=== PATIENT | female | born 1985 | race Caucasian/White ===

== ENCOUNTER 2016-06-25 15:29 | Emergency (ER) | payer MEDICAID ==
[2011-12-28 01:35] VITALS: BMI 39.0
[2016-06-25 17:05] LABS: APPEARANCE CLEAR (CLEAR); BILIRUBIN NEGATIVE (NEGATIVE); COLOR YELLOW (YELLOW); GLUCOSE NEGATIVE (NEGATIVE); KETONE NEGATIVE (NEGATIVE); LEUKOCYTE ESTERASE TRACE (NEGATIVE); NITRITE POSITIVE (NEGATIVE); PROTEIN NEGATIVE (NEGATIVE); UROBILINOGEN NORMAL (NORMAL)
[2016-06-25 17:06] LABS: WHITE CELLS - URINE 25-50 /hpf (0-5)
[2016-06-25 17:07] LABS: BACTERIA MANY /hpf (NONE SEEN); MUCUS <1+ /lpf (NONE SEEN)
[2016-06-25 17:13] LABS: BASOPHILS 0.1 % (0.0-2.0); EOSINOPHILS 1.6 % (0-7); HEMATOCRIT 39.1 % (36.0-48.0); HEMOGLOBIN 12.7 g/dL (12-16); IMMATURE GRANULOCYTES 0.2 % (0-5); LYMPHOCYTES 21.5 % (15-50); MCH 27.5 pg (26.0-34.0); MCHC 32.5 g/dL (31.0-37.0); MCV 84.8 fL (80.0-100.0); MEAN PLATELET VOLUME 9.9 fL (7.4-10.4); MONOCYTES 5.3 % (2-11); NEUTROPHILS 71.3 % (40-80); PLATELET COUNT 250 10x3/uL (130-400); RBC 4.61 10x6/uL (4.00-5.40); RDW 14.5 % (11.5-14.5); WBC 14.8 10x3/uL (4.8-10.8)
[2016-06-25 17:24] LABS: ALBUMIN 3.5 g/dL (3.4-5.0); ALKALINE PHOSPHATASE 87 U/L (46-116); ALT (SGPT) 32 U/L (10-68); BILIRUBIN - TOTAL 0.14 mg/dL (0.2-1.3); CALC OSMOLALITY 280 mosm/kg (275-300); CALCIUM 8.9 mg/dL (8.5-10.1); CARBON DIOXIDE 28.4 mmol/L (21.0-32.0); CHLORIDE - SERUM 106 mmol/L (98-107); CREATININE - SERUM 0.8 mg/dL (0.6-1.3); GLUCOSE 87 mg/dL (74-106); POTASSIUM - SERUM 4.2 mmol/L (3.5-5.1); PROTEIN - SERUM 7.4 g/dL (6.4-8.2); SODIUM 141 mmol/L (136-145); UREA NITROGEN 16 mg/dL (7-18); eGFR NON AFRICAN AMERICAN 89 mL/min (90-120)
[2016-06-25 18:23] LABS: HCG SERUM NEGATIVE (NEGATIVE)
== END 2016-06-25 19:10 | disposition home or self-care (01) ==
LOC: D.ER 15:29
PROVIDERS: Emergency Medicine
DX: N39.0 Urinary tract infection, site not specified (principal)

== ENCOUNTER 2016-08-31 11:56 | Emergency (ER) | payer MEDICAID ==
[2011-12-28 01:35] VITALS: BMI 39.0
== END 2016-08-31 14:29 | disposition home or self-care (01) ==
LOC: D.ER 11:56
DX: S70.02XA Contusion of left hip, initial encounter (principal); W01.0XXA Fall on same level from slipping, tripping and stumbling without subsequent striking against object, initial encounter; Y93.89 Activity, other specified; Y92.019 Unspecified place in single-family (private) house as the place of occurrence of the external cause; F17.200 Nicotine dependence, unspecified, uncomplicated

== ENCOUNTER 2017-03-23 12:24 | Emergency (ER) | payer MEDICAID ==
[2011-12-28 01:35] VITALS: BMI 39.0
== END 2017-03-23 16:26 | disposition home or self-care (01) ==
LOC: D.ER 12:24
DX: S16.1XXA Strain of muscle, fascia and tendon at neck level, initial encounter (principal); V43.52XA Car driver injured in collision with other type car in traffic accident, initial encounter; Y93.89 Activity, other specified; Y92.410 Unspecified street and highway as the place of occurrence of the external cause; F17.200 Nicotine dependence, unspecified, uncomplicated

== ENCOUNTER 2017-08-01 09:56 | Emergency (ER) | payer MEDICAID ==
[2011-12-28 01:35] VITALS: BMI 39.0
== END 2017-08-01 11:33 | disposition home or self-care (01) ==
LOC: D.ER 09:56
DX: M54.16 Radiculopathy, lumbar region (principal); F17.200 Nicotine dependence, unspecified, uncomplicated

== ENCOUNTER 2017-11-23 19:12 | Emergency (ER) | payer MEDICAID ==
[~2017-11-23] VITALS: Ht 162.6 cm; Wt 106.8 kg
[2017-11-23 19:17] VITALS: Ht 162.6 cm; Wt 106.8 kg
[2017-11-23 20:03] LABS: HCG URINE NEGATIVE (NEGATIVE)
[2017-11-23] MEDS ORDERED: ROBAXIN-750750 MG PO (23:18)
[2017-11-24 01:17] VITALS: BP 140/70
== END 2017-11-24 01:17 | disposition home or self-care (01) ==
LOC: D.ER 19:12
PROVIDERS: Emergency Medicine
DX: S16.1XXA Strain of muscle, fascia and tendon at neck level, initial encounter (principal); X58.XXXA Exposure to other specified factors, initial encounter; Y93.89 Activity, other specified; Y92.89 Other specified places as the place of occurrence of the external cause; S39.012A Strain of muscle, fascia and tendon of lower back, initial encounter; R51 Headache; M54.2 Cervicalgia; F17.200 Nicotine dependence, unspecified, uncomplicated

== ENCOUNTER 2018-07-09 22:11 | Emergency (ER) | payer MEDICAID ==
[~2018-07-09] VITALS: Ht 162.6 cm; Wt 106.6 kg
[~2018-07-09 22:11] MED LIST: ROBAXIN-750750 MG PO
[2018-07-09 22:19] VITALS: Ht 162.6 cm; Wt 106.6 kg
[2018-07-09] MEDS ORDERED: TORADOL10 MG PO (23:49)
[2018-07-09] MEDS ORDERED: VALTREX1000 MG PO (23:49)
[2018-07-09] MEDS ORDERED: CLEOCIN HCL300 MG PO (23:49)
[2018-07-10 00:44] VITALS: BP 113/62
== END 2018-07-10 00:45 | disposition home or self-care (01) ==
LOC: D.ER 22:11
PROVIDERS: Family Medicine
DX: N61.1 Abscess of the breast and nipple (principal)

== ENCOUNTER 2018-09-21 00:02 | Emergency (ER) | payer MEDICAID ==
[~2018-09-21] VITALS: Ht 162.6 cm; Wt 106.8 kg
[~2018-09-21 00:02] MED LIST changes: +CLEOCIN HCL300 MG PO; +TORADOL10 MG PO; +VALTREX1000 MG PO
[2018-09-21 00:10] VITALS: Ht 162.6 cm; Wt 106.8 kg
[2018-09-21 00:36] LABS: HCG URINE NEGATIVE (NEGATIVE)
[2018-09-21 00:39] LABS: APPEARANCE HAZY (CLEAR); BACTERIA MANY /hpf (NONE SEEN); BILIRUBIN NEGATIVE (NEGATIVE); COLOR YELLOW (YELLOW); GLUCOSE NEGATIVE (NEGATIVE); KETONE NEGATIVE (NEGATIVE); MUCUS >1+ /lpf (NONE SEEN); NITRITE POSITIVE (NEGATIVE); PROTEIN NEGATIVE (NEGATIVE); RED CELLS - URINE 25-50 /hpf (0-5); UROBILINOGEN NORMAL (NORMAL)
[2018-09-21 00:51] LABS: BASOPHILS 0.3 % (0-2); EOSINOPHILS 1.8 % (0-7); HEMATOCRIT 37.9 % (36.0-48.0); HEMOGLOBIN 12.7 g/dL (12-16); IMMATURE GRANULOCYTES 0.2 % (0-5); MCH 28.5 pg (26.0-34.0); MCHC 33.5 g/dL (31.0-37.0); MCV 85.2 fL (80.0-100.0); MEAN PLATELET VOLUME 9.1 fL (7.4-10.4); MONOCYTES 7.1 % (2-11); NEUTROPHILS 65.6 % (40-80); PLATELET COUNT 260 10x3/uL (130-400); RBC 4.45 10x6/uL (4.00-5.40); RDW 14.1 % (11.5-14.5); WBC 11.4 10x3/uL (4.8-10.8)
[2018-09-21 01:15] LABS: ALBUMIN 3.3 g/dL (3.4-5.0); ALKALINE PHOSPHATASE 84 U/L (46-116); ALT (SGPT) 23 U/L (10-68); AMYLASE - SERUM 47 U/L (25-115); BILIRUBIN - TOTAL 0.21 mg/dL (0.2-1.3); CALC OSMOLALITY 285 mosm/kg (275-300); CALCIUM 8.5 mg/dL (8.5-10.1); CARBON DIOXIDE 27.2 mmol/L (21.0-32.0); CHLORIDE - SERUM 106 mmol/L (98-107); CREATININE - SERUM 0.8 mg/dL (0.6-1.3); GLUCOSE 90 mg/dL (74-106); LIPASE 93 U/L (73-393); PROTEIN - SERUM 7.2 g/dL (6.4-8.2); SODIUM 143 mmol/L (136-145); UREA NITROGEN 15 mg/dL (7-18); eGFR NON AFRICAN AMERICAN 88 mL/min (90-120)
[2018-09-21] MEDS ORDERED: OMNICEF300 MG PO (01:35)
[2018-09-21 01:44] VITALS: BP 127/76
== END 2018-09-21 01:43 | disposition home or self-care (01) ==
LOC: D.ER 00:02
PROVIDERS: Family Medicine
DX: N39.0 Urinary tract infection, site not specified (principal); J01.90 Acute sinusitis, unspecified; R31.9 Hematuria, unspecified

== ENCOUNTER 2018-12-22 05:03 | Inpatient (IN) | payer MEDICAID ==
[2018-12-22] VITALS (7 sets, daily range): BP systolic 108–137; BP diastolic 55–90; Ht 162.6 cm; Wt 112.7 kg
[~2018-12-22] VITALS: Ht 162.6 cm; Wt 112.7 kg
--- NOTE | ~2018-12-22 | HEMODYNAMI ---
PATIENT:CHICO FORD MEDICAL RECORD: [id number] : 87 LOCATION:[facility] D.2102 ADMISSION DATE: 12/22/18 Generatedon:12/22/201817:05 Patient name: CHICO FORD Patient #: [id number] SSN: DO B: 1985 Date of study: 12/22/2018 Page: Of Hemodynamic Procedure Report Patient Data Patient Demographics Procedure consent was obtained First Name: CHICO Gender: Female Last Name: LILIANA : 1985 Middle Initial: R Age: 33 year(s) Patient #: [id number] Race: Unknown Additional ID: [id number] Contact details Address: [address] [place] [address] State: [place] City: [place] Zip code: [address] Admission Admission Data Admission Date: 12/22/2018 Admission Time: 7:44 Room #: D.2102 Procedure Procedure Types Cath Procedure Peripheral Cath Diagnostic Procedure Nephro Nephrostomy Tubes Procedure Description Procedure Date Procedure Date: 12/22/2018 Procedure Start Time: 16:10 Procedure Staff Name Function Ed Hagan MD Performing Physician Taz Shine RT Monitor Dulce Christianson RT Scrub Louise Arreguin RN Nurse Procedure Data Cath Procedure Fluoroscopy Diagnostic fluoroscopy Total fluoroscopy Time: time: 10.5 min 10.5 min Diagnostic fluoroscopy Total fluoroscopy dose: 477 dose: 477 mGy mGy Contrast Material Contrast Material Type Amount (ml) Isovue 300 25 Procedure Medications Medication Administration Route Dosage unlisted medication I.V. 1 g Benadryl I.V. 25 mg Heparin Flush Bag added to field 1 bags (1000units/500ml NS) Lidocaine 1% added to field 20 Versed I.V. 1 mg Fentanyl I.V. 50 mcg Versed I.V. 1 mg Fentanyl I.V. 50 mcg Versed I.V. 1 mg Fentanyl I.V. 50 mcg Fentanyl I.V. 25 mcg Versed I.V. 0.5 mg Versed I.V. 0.5 mg Fentanyl I.V. 25 mcg Benadryl I.V. 25 mg Fentanyl I.V. 50 mcg Versed I.V. 1 mg Fentanyl I.V. 50 mcg Versed I.V. 1 mg Hemodynamics Rest Heart Rate: 76 (bpm) Snapshots Pre Cath Intra NCS Post Cath Vital Signs Time Heart Resp SPO2 etCO2 NIBP (mmHg) Rhythm Pain Sedation Rate (ipm) (%) (mmHg) Status Level (bpm) 15:53:53 89 26 94 30.7 132/77(110) NSR 0 (11) 10(A) , No pain 15:58:05 87 24 92 30.7 130/80(104) NSR 0 (11) 10(A) , No pain 16:02:13 91 21 92 30.7 134/85(108) NSR 0 (11) 8(A) , No pain 16:06:25 90 25 91 29.9 135/81(117) NSR 0 (11) 8(A) , No pain 16:10:37 85 24 92 29.9 132/79(107) NSR 0 (11) 8(A) , No pain 16:14:49 74 23 92 27.7 132/83(112) NSR 0 (11) 8(A) , No pain 16:19:03 95 23 92 30.7 128/77(95) NSR 0 (11) 8(A) , No pain 16:23:13 96 18 91 29.9 127/76(94) NSR 0 (11) 8(A) , No pain 16:27:20 107 23 93 31.4 116/73(86) NSR 0 (11) 8(A) , No pain 16:31:26 107 21 92 29.2 119/78(93) NSR 0 (11) 8(A) , No pain 16:35:32 95 23 97 29.9 137/83(108) NSR 0 (11) 8(A) , No pain 16:39:44 93 24 99 32.9 135/88(112) NSR 0 (11) 8(A) , No pain 16:43:52 93 24 100 32.2 139/87(116) NSR 0 (11) 8(A) , No pain 16:48:02 103 24 100 31.4 134/90(116) NSR 0 (11) 8(A) , No pain 16:52:13 99 24 100 31.4 140/83(113) NSR 0 (11) 8(A) , No pain 16:56:23 93 26 100 32.2 140/87(113) NSR 0 (11) 8(A) , No pain 17:00:33 96 26 100 31.4 141/92(109) NSR 0 (11) 8(A) , No pain Medications Time Medication Route Dose Verified Delivered Reason Notes Effec tiveness by by 15:51:21 maxipme I.V. 1g Ed Louise Per Rodríguez Hagan RN physician 15:51:37 Benadryl I.V. 25 mg Ed Louise for Rodríguez Hagan RN sedation 15:59:11 Heparin Flush added 1 Ed Ward used for Bag to bags Danya Hagan MD procedure (1000units/500ml field KHOURY NS) 15:59:28 Lidocaine 1% added 20ml Ed Ward used for to vial Danya Hagan MD procedure field KHOURY 16:18:36 Versed I.V. 1 mg Ed Louise used for Rodríguez Hagan community pharmacist 16:18:51 Fentanyl I.V. 50 Ed Louise used for mcg Rodríguez Hagan community pharmacist 16:23:04 Versed I.V. 1 mg Ed Louise used for Rodríguez Hagan community pharmacist 16:23:14 Fentanyl I.V. 50 Ed Louise used for mcg Rodríguez Hagan community pharmacist 16:26:01 Versed I.V. 1 mg Ed Louise used for Rodríguez Hagan community pharmacist 16:26:36 Fentanyl I.V. 50 Ed Louise used for mcg Rodríguez Hagan community pharmacist 16:35:54 Fentanyl I.V. 25 Ed Louise used for mcg Rodríguez Hagan community pharmacist 16:36:02 Versed I.V. 0.5 Ed Louise used for mg Rodríguez Hagan community pharmacist 16:39:42 Versed I.V. 0.5 Ed Louise used for mg Rodríguez Hagan community pharmacist 16:39:57 Fentanyl I.V. 25 Ed Louise used for mcg Rodríguez Hagan community pharmacist 16:40:56 Benadryl I.V. 25 mg Ed Louise for Rodríguez Hagan RN sedation 16:43:44 Fentanyl I.V. 50 Ed Louise used for mcg Rodríguez Hagan RN procedure 16:43:53 Versed I.V. 1 mg Ed Louise used for Rodríguez Hagan RN procedure 16:59:20 Fentanyl I.V. 50 Ed Louise used for mcg Rodríguez Hagan RN procedure 16:59:29 Versed I.V. 1 mg Ed Louise used for Rodríguez Hagan RN, MD Procedure Log Time Note 15:31:44 Taz Rl RT (R) (CV) sent for patient. Start room use. 15:31:53 Time tracking: Regular hours (M-F 7:00 - 5:00) 15:31:59 Plan of Care:Hemodynamics will remain stable., Cardiac rhythm will remain stable., Comfort level will be maintained., Respiratory function will remain adequate., Patient/ family verbilizes understanding of procedure., Procedure tolerated without complication., Recovers from procedure without complications.. 15:32:09 Patient received from panOpen to IR Alert and oriented. Tansferred to table in Prone position. 15:32:14 Signed procedure consent form obtained from patient. 15:32:20 Correct patient and procedure confirmed by team. 15:32:21 ECG and BP/O2 sat monitors applied to patient. 15:32:24 Full Disclosure recording started 15:32:26 - 15:32:32 H&P Date Dictated: 12/22/2018 Within 30 days and on chart.. 15:32:33 Pre-procedure instructions explained to patient. 15:32:33 Pre-procedure instructions explained to patient. 15:32:35 Family in waiting room. 15:32:38 Patient NPO since Midnight. 15:32:46 Is the patient allergic to Iodine/contrast media? No. 15:32:47 Is patient on blood thinner?No 15:32:55 Patient diabetic? No. 15:32:57 - 15:33:22 HCG/Urine : not drawn 15:33:32 ----Pre-sedation anethsthesia assessment.---- 15:33:39 Previous problem with sedation/anesthesia? No ? 15:33:43 Snore? No 15:33:45 Sleep apnea? No 15:33:50 Deviated septum? No 15:33:54 Opens mouth fully? Yes 15:33:55 Sticks out tongue? Yes 15:33:57 Airway obstruction? No ? 15:33:59 Dentures? No ? 15:34:00 - 15:34:14 Use device set IR Diagnostic 15:34:16 Bag Decanter () opened to sterile field. 15:34:16 Sterile Angiographic Pack opened to sterile field. 15:36:32 HCG/Urine : completed and on chart 15:51:21 maxipme 1g I.V. was administered by Louise Arreguin RN; Per physician; 15:51:37 Benadryl 25 mg I.V. was administered by Louise Arreguin RN; for sedation; 15:52:19 Patient pain scale 0/10 no pain. 15:52:36 Left Lumbar was prepped with chlora-prep and draped in sterile fashion. 15:52:38 Alarms reviewed by RVita NVita 15:52:39 Sharps counted by scrub and verified by RVitaN. 15:52:46 Vital chart was started 15:52:47 Baseline sample Acquired. 15:59:11 Heparin Flush Bag (1000units/500ml NS) 1 bags added to field was administered by Ed Hagan MD; used for procedure; 15:59:28 Lidocaine 1% 20ml vial added to field was administered by Ed Hagan MD; used for procedure; 16:09:12 Physician arrived 16::13 --------ALL STOP TIME OUT------ 16:09:14 Final Timeout: patient, procedure, and site verified with staff and physician. All members of the team are in agreement. 16:09:20 Lumbar site verified by team. 16::26 Fire Safety Assessment: A--An alcohol-based skin anteseptic being used preoperatively., C--Open oxygen or nitrous oxide is being used. 16:10:24 Sedation plan: IV Moderate Sedation Medication:Versed, Fentanyl 16:10:34 Procedure started. 16:10:39 Local anesthetic to Lumbar area with Lidocaine 1% by Ed Hagan MD.INITIAL ACCESS ONLY 16:16:16 Tegaderm 4 x 4 (1626W) opened to sterile field. 16:16:17 BAG, DRAINAGE EMPTY 600ML W/MARIA E ([id number]) opened to sterile field. 16:16:17 STOPCOCK 3-Way Large Bore ([id number]) opened to sterile field. 16:16:17 IV Extension Set opened to sterile field. 16:16:18 KIT, INTRODUCER ACCUSTICK II W/C ([id number]) opened to sterile field. 16:16:18 CHIBA 22 X 15 needle opened to sterile field. 16:17:23 Abscession 8Fr drainage catheter ([id number]) opened to sterile field. 16:18:36 Versed 1 mg I.V. was administered by Louise Arreguin RN; used for procedure; 16:18:51 Fentanyl 50 mcg I.V. was administered by Louise Arreguin RN; used for procedure; 16:23:04 Versed 1 mg I.V. was administered by Louise Arreguin RN; used for procedure; 16:23:14 Fentanyl 50 mcg I.V. was administered by Louise Arreguin RN; used for procedure; 16:26:01 Versed 1 mg I.V. was administered by Louise Arreguin RN; used for procedure; 16:26:36 Fentanyl 50 mcg I.V. was administered by Louise Arreguin RN; used for procedure; 16:35:08 NITINOL .018 80cm wire ([id number]) opened to sterile field. 16:35:54 Fentanyl 25 mcg I.V. was administered by Louise Arreguin RN; used for procedure; 16:36:02 Versed 0.5 mg I.V. was administered by Louise Arreguin RN; used for procedure; 16:39:42 Versed 0.5 mg I.V. was administered by Louise Arreguin RN; used for procedure; 16:39:57 Fentanyl 25 mcg I.V. was administered by Louise Arreguin RN; used for procedure; 16:40:56 Benadryl 25 mg I.V. was administered by Louise Arreguin RN; for sedation; 16:43:44 Fentanyl 50 mcg I.V. was administered by Louise Arreguin RN; used for procedure; 16:43:53 Versed 1 mg I.V. was administered by Louise Arreguin RN; used for procedure; 16:47:28 GLIDE WIRE ANGLE 180cm ([id number]) opened to sterile field. 16:54:56 KIT, INTRODUCER ACCUSTICK II W/C ([id number]) opened to sterile field. 16:58:11 Procedure ended.(Physican Out) 16:59:20 Fentanyl 50 mcg I.V. was administered by Louise Arreguin RN; used for procedure; 16:59:29 Versed 1 mg I.V. was administered by Louise Arreguin RN; used for procedure; 16:59:44 Fluoroscopy time 10.50 minutes. 16:59:57 Fluoroscopy dose: 477 mGy 16:59:57 Flurop Dose total: 477 17:00:02 Contrast amount:Isovue 300 25ml. 17:00:07 Insertion/operative site no bleeding no hematoma. 17:00:12 Post-op/insertion site Left Lumbar area dressed using a 4 x 4 and Tegaderm. 17:00:19 Post Lumbar area:stable 17:00:23 Post procedure instruction explained to patient.Patient verbalizes understanding. 17:00:24 Procedure and supply charges have been captured, reviewed, submitted an d are correct. 17:03:39 Report given to [facility]. 17:03:59 Patient transfered to [facility] with Bed. 17:05:27 Vital chart was stopped Device Usage Item Name Manufacture Quantity Catalog Hospital Part Current Minima l Lot# / Number Charge Number Stock Stock Serial# Code Bag Decanter Microtek 1 2001S [id number] 88484 [id number] 5 (2001S) Medical Inc. Sterile Cardinal 1 [id number] 161861 954461 5 Angiographic Health Pack Tegaderm 4 x 3M 1 1626W 135662 640580 910970 5 4 (1626W) BAG, [facility] 1 [id number] 025474 713229 121335 5 DRAINAGE EMPTY 600ML W/MARIA E (ERI874) STOPCOCK [facility] 1 [id number] 068346 7586 747747 5 [id number] 3-Way Large Bore ([id number]) IV Extension Hospira 1 32621-99 756285 63757 796331 5 [id number] Set KIT, Kathleen 2 [id number] 082638 071930 013804 5 [id number] INTRODUCER Scientific [id number] ACCUSTICK II W/C ([id number]) CHIBA 22 X [facility] 1 D30006 659918 868748 5 [id number] 15 needle Abscession Angiodynamics 1 [id number] 478248 205869 423846 5 8Fr drainage catheter ([id number]) NITINOL .018 Medtronic 1 [id number] 120432 989101 5 [id number] 80cm wire ([id number]) GLIDE WIRE Terumo 1 [id number] 115092 304102 812845 5 ANGLE 180cm ([id number]) Signature Audit [place] Stage Time Signature Unsigned Intra-Procedure 12/22/2018 Taz 5:05:23 PM [place] RT (R) (CV) Signatures Monitor : Taz Signature : [place] RT Date : Time : [facility] [address] [place] [address]
[~2018-12-22 05:03] MED LIST changes: +OMNICEF300 MG PO
--- NOTE | 2018-12-22 05:19 | NUR ---
URINE COLLECTED AND SENT TO LAB. BLANKET PROVIDED FOR PT COMFORT.
[2018-12-22 05:44] LABS: HCG URINE NEGATIVE (NEGATIVE)
[2018-12-22 05:45] LABS: APPEARANCE HAZY (CLEAR); BILIRUBIN NEGATIVE (NEGATIVE); COLOR YELLOW (YELLOW); GLUCOSE NEGATIVE (NEGATIVE); KETONE NEGATIVE (NEGATIVE); NITRITE POSITIVE (NEGATIVE); PROTEIN NEGATIVE (NEGATIVE); SPECIFIC GRAVITY 1.015 (1.005-1.020); UROBILINOGEN NORMAL (NORMAL)
[2018-12-22 05:46] LABS: BACTERIA MANY /hpf (NONE SEEN); CALCIUM OXALATE CRYSTALS 0-5 /hpf (NONE SEEN); EPITHELIAL CELLS 0-5 /hpf (0-5); RED CELLS - URINE 0-5 /hpf (0-5)
[2018-12-22 05:49] LABS: UDS - AMPHET NEGATIVE QUAL (NEGATIVE); UDS - BARB NEGATIVE QUAL (NEGATIVE); UDS - BENZO POSITIVE QUAL (NEGATIVE); UDS - COCAINE NEGATIVE QUAL (NEGATIVE); UDS - OPIATE POSITIVE QUAL (NEGATIVE); UDS - PCP NEGATIVE QUAL (NEGATIVE); UDS - THC NEGATIVE QUAL (NEGATIVE)
[2018-12-22] MEDS ORDERED: OMNICEF300 MG PO (05:51)
[2018-12-22 06:13] LABS: ALBUMIN 3.5 g/dL (3.4-5.0); ANION GAP 15.5 mmol/L (8-16); BILIRUBIN - TOTAL 0.35 mg/dL (0.2-1.3); CALCIUM 8.7 mg/dL (8.5-10.1); CARBON DIOXIDE 23.9 mmol/L (21.0-32.0); CREATININE - SERUM 1.2 mg/dL (0.6-1.3); POTASSIUM - SERUM 3.4 mmol/L (3.5-5.1); PROTEIN - SERUM 7.5 g/dL (6.4-8.2)
[2018-12-22 06:35] LABS: HEMATOCRIT 38.5 % (36.0-48.0); HEMOGLOBIN 13.2 g/dL (12-16); MCH 28.6 pg (26.0-34.0); MCHC 34.3 g/dL (31.0-37.0); MCV 83.5 fL (80.0-100.0); MEAN PLATELET VOLUME 9.7 fL (7.4-10.4); PLATELET COUNT 269 10x3/uL (130-400); RBC 4.61 10x6/uL (4.00-5.40); RDW 14.3 % (11.5-14.5); WBC 20.6 10x3/uL (4.8-10.8)
--- NOTE | 2018-12-22 07:01 | NUR ---
HANDOFF REPORT GIVEN TO LAI CABAN PER SBAR AT BEDSIDE.
--- NOTE | 2018-12-22 07:05 | NUR ---
ASSUMED CARE OT PT. CURLED UP IN BED, MOANING AND CRYING. REPORTS PAIN 02/15. SPOKE WITH DR KNIGHT AND NEW ORDERS RCVD AND ADMIN. PT A/OX3. SPEECH CLWEAR
--- NOTE | 2018-12-22 07:17 | NUR ---
RESTING IN BED WITH EYES CLOSED. AROUSES EAISLY AND REPORTS PAIN "STILL HURTS BUT MUCH BETTER"
--- NOTE | 2018-12-22 07:45 | NUR ---
RESTING IN BED WITH SNORING RESP. VSS.
--- NOTE | 2018-12-22 07:56 | NUR ---
REPORT CALLED TO LAI CHENG BY SBAR FORMAT
--- NOTE | 2018-12-22 07:58 | NUR ---
TRANSPORTED TO ROOM #2102, CONDITION STABLE
--- NOTE | 2018-12-22 08:15 | NUR ---
RECEIVED TO ROOM 2101 AND MADE COMFORTABLE. ORIENTED TO ROOM. NO REQUESTS AT THIS TIME. IV PATENT TO RIGHT AC AND INFUSING WELL AT 125 CC/HR. BED IN LOW LOCKED POSITION AND CALL LIGHT IN REACH. WILL CONTINUE POC.
[2018-12-22 09:43] LABS: APTT 29.6 SECONDS (22.8-39.4); PROTIME 12.7 SECONDS (11.6-15.0)
[2018-12-22 10:15] LABS: EOSINOPHILS 1 % (0-7); LYMPHOCYTES 7 % (15-50); MONOCYTES 8 % (2-11); NEUTROPHILS 78 % (40-80); PLATELET ESTIMATE NORMAL; ROULEAUX OCC
--- NOTE | 2018-12-22 10:53 | NUR ---
SURGERY CONSENT FOR PLACEMENT OF NEPHROSTOMY TUBE SIGNED BY PT. NO QUESTIONS AT PRESENT TIME.
--- NOTE | 2018-12-22 15:05 | NUR ---
REQUESTED HER IV SITE BE MOVED FROM AC. LEFT AC LINE IN BUT STARTED IV IN RIGHT HAND WITH 20 GAUGE X 1 ATTEMPT. IV FLUID INFUSING WELL.
--- NOTE | 2018-12-22 15:30 | NUR ---
TO IR VIA BED FOR PROCEDURE
--- NOTE | 2018-12-22 19:30 | NUR ---
PT CARE ASSUMED. VOICED C/O OF BACK PAIN 12/16. TRIED REPOSTIONING. DRESSING ON LEFT LOWER BACK C/D/. FAMILY PRESENT AT BEDSIDE. WILL CPOC.
--- NOTE | 2018-12-22 22:24 | NUR ---
D/C IV TO RIGHT HAND. CATHETER TIP INTACT.
[2018-12-23] VITALS: BP 120/74
[2018-12-23 03:42] LABS: BASOPHILS 0.1 % (0-2); EOSINOPHILS 0 % (0-7); HEMATOCRIT 33.4 % (36.0-48.0); HEMOGLOBIN 11.2 g/dL (12-16); IMMATURE GRANULOCYTES 0.3 % (0-5); LYMPHOCYTES 7.4 % (15-50); MCH 27.9 pg (26.0-34.0); MCHC 33.5 g/dL (31.0-37.0); MCV 83.3 fL (80.0-100.0); MEAN PLATELET VOLUME 9.7 fL (7.4-10.4); NEUTROPHILS 87.2 % (40-80); RBC 4.01 10x6/uL (4.00-5.40); RDW 14.7 % (11.5-14.5); WBC 18.5 10x3/uL (4.8-10.8)
[2018-12-23 03:50] LABS: ANION GAP 14.4 mmol/L (8-16); CALCIUM 7.9 mg/dL (8.5-10.1); CARBON DIOXIDE 22.2 mmol/L (21.0-32.0); CREATININE - SERUM 1.3 mg/dL (0.6-1.3); POTASSIUM - SERUM 3.6 mmol/L (3.5-5.1)
[2018-12-23 03:57] LABS: PLATELET COUNT 178 10x3/uL (130-400)
[2018-12-23 04:00] VITALS: BP 116/70
--- NOTE | 2018-12-23 07:00 | NUR ---
RECEIVED REPORT. ASSUMED CARE OF PATIENT. RESTING IN BED WITH EYES OPEN, VISITING WITH A HOSPITAL EMPLOYEE AT BEDSIDE. NO DISTRESS.
--- NOTE | 2018-12-23 07:37 | NUR ---
MEDICATED FOR PAIN AT THIS TIME. COMPLAIN OF BACK PAIN. DRESSING TO LEFT POSTERIOR LOWER BACK INTACT. NO DISTRESS. CALL LIGHT WITHIN REACH.
[2018-12-23 09:58] VITALS: BP 133/72
--- NOTE | 2018-12-23 10:56 | NUR ---
MEDICATED FOR PAIN AT THIS TIME. PATIENT WANTING TO KNOW IF SHE CAN STILL HAVE MORPHINE IN 45 MINS AFTER TAKING THIS MEDCIATION. THIS UNIFIED COMMUNICATIONS ENGINEER INFORMED HER WE NEED TO WAIT ONE HOUR. CALL LIGHT WITHIN REACH.
--- NOTE | 2018-12-23 11:31 | NUR ---
CALLED AND SPOKE WITH SOLO MUNOZ KATLIN HAS STEPPED OUT FOR A MOMENT. EXPLAINED PAIN SITUATION TO TAMMY AND SHE WILL PASS IT ON TO KATLIN. NO NEW ORDERS RECEIVED AT THIS TIME.
--- NOTE | 2018-12-23 12:28 | NUR ---
MEDICATED FOR CONTINUOUS PAIN THAT NORCO HAS NOT RELEIVED AT THIS TIME. NO DISTRESS.
--- NOTE | 2018-12-23 14:47 | NUR ---
PATIENT CALLED KITCHEN AND COUNTER WORKER TO COMPLAIN THAT NOBODY HAS ANSWERED HER CALL LIGHT FOR TWO HOURS AND THAT SHE HAS LAID THERE IN PAIN. THE KITCHEN AND COUNTER WORKER CALLED THIS [employer] CHIEF CLERK AND I INFORMED KITCHEN AND COUNTER WORKER OF EACH TIME THIS PR[employer]OP CHIEF CLERK HAS ADMINISTERED PAIN MEDICATION AND HAVE DOCUMENTED IN MY NOTES. ASKED MIKIE ROBERTSON IF PATIENT HAS HAD ANY COMPLAINTS AND SHE STATED NO, THAT PATIENT HAS BEEN ASLEEP MOST EVERY TIME THAT SHE HAS BEEN IN THE PATIENTS ROOM. THIS NURSE HAS ADMINISTERED PAIN MEDICATION EACH TIME IT HAS BEEN REQUESTED AND AVAILABLE TO THE PATIENT. PATIENTS CHILDREN AT BEDSIDE AT THIS TIME VISITING PATIENT.
[2018-12-23 14:51] VITALS: BP 129/76
--- NOTE | 2018-12-23 15:16 | NUR ---
PROVIDED PATIENT WITH BATHING ACCESSORIES, NEW GOWN, TOWELS, AND WASHCLOTHES. TAPED IV TO RIGHT HAND AND RIGHT AC TO PREVENT DISLOGMENT. PATIENT INSISTED HER DAUGHTER WOULD HELP HER IN THE SHOWER WITH THIS COMPLAINT CLERK OFFERED TO HAVE ONE OF THE DESIGN TECH'S ON THE UNIT ASSIST HER.
--- NOTE | 2018-12-23 16:04 | NUR ---
MEDICATED FOR PAIN AT THIS TIME WITH DILAUDID. PATIENT SITTING IN BED, CONVERSING ON PHONE. NO GRIMACING, GAURDING, MOANING, OR LABORED BREATHING TO INDICATE PAIN OF 8/10. IV FLUIDS INFUSING ORDERED. NO DISTRESS.
--- NOTE | 2018-12-23 16:07 | NUR ---
PATIENT SENDS HER KIDS OUT TO THE DESK TO VERIFY WHAT MEDICATION WAS ADMINISTERED VIA IV AGAIN AFTER THIS DOT ETCHER INFORMED HER THAT 1MG OF DILAUDID WAS ADMINISTERED.
--- NOTE | 2018-12-23 16:30 | NUR ---
CHECKED ON PATIENT. PATIENT LYING ON HER LEFT LATERAL SIDE. WHEN ASKED HOW THE DILAUDID WAS HELPING HER PAIN, PATEINT GAVE "TWO THUMBS UP". PATIENTS CHILDREN REMAIN AT BEDSIDE. NO DISTRESS.
[2018-12-23 17:15] VITALS: BP 155/86
--- NOTE | 2018-12-23 18:34 | NUR ---
MEDICATED FOR PAIN AT THIS TIME. SITTING IN BED. TEMP CHECKED, ORAL 99.3. IV FLUIDS INFUSING ORDERED. NO DISTRESS.
--- NOTE | 2018-12-23 18:36 | NUR ---
PATIENT GIVEN PAIN MEDICATION AND THEN STARTS GIGGLING WITH HER DAUGHTER AT BEDSIDE. PAIN IS SUBJECTIVE, HOWEVER PATIENT IS NOT DISPLAYING TYPICAL GAURDING, GRIMACING, OR MOANING EXPECTED WHEN SOMEONE RATES THEIR PAIN 8/10. CHARGE NURSE MADE AWARE OF PATIENT ACTIONS AFTER RECEIVING PAIN MEDICATION.
--- NOTE | 2018-12-23 19:51 | NUR ---
EVENING ROUNDS COMPLETED. REPORT RECEIVED. PT SITTING UP IN BED WITH EYES OPEN, RR EVEN AND UNLABORED. BED IN LOW POSITION. NO S/S OF DISTRESS NOTED. INTRODUCED SELF TO PT. PT DENIES FURTHER NEEDS AT THIS TIME. SISTER AT BEDSIDE. CALL LIGHT IN REACH. WILL CTM.
[2018-12-23 20:00] VITALS: BP 123/69
[2018-12-24] VITALS: BP 126/71
--- NOTE | 2018-12-24 02:01 | NUR ---
I have reviewed this patient and I concur with the Shift Assessment completed by the Licensed Practical Nurse today this shift.
[2018-12-24 03:38] LABS: BASOPHILS 0.1 % (0-2); EOSINOPHILS 0.2 % (0-7); HEMATOCRIT 30.5 % (36.0-48.0); HEMOGLOBIN 10.3 g/dL (12-16); IMMATURE GRANULOCYTES 0.4 % (0-5); LYMPHOCYTES 7.5 % (15-50); MCH 28.1 pg (26.0-34.0); MCHC 33.8 g/dL (31.0-37.0); MCV 83.3 fL (80.0-100.0); MEAN PLATELET VOLUME 9.6 fL (7.4-10.4); MONOCYTES 7.1 % (2-11); NEUTROPHILS 84.7 % (40-80); PLATELET COUNT 154 10x3/uL (130-400); RBC 3.66 10x6/uL (4.00-5.40); RDW 15.1 % (11.5-14.5); WBC 16.7 10x3/uL (4.8-10.8)
[2018-12-24 03:49] LABS: ANION GAP 11.4 mmol/L (8-16); CALCIUM 7.7 mg/dL (8.5-10.1); CREATININE - SERUM 1.2 mg/dL (0.6-1.3); POTASSIUM - SERUM 3.4 mmol/L (3.5-5.1)
--- NOTE | 2018-12-24 03:59 | NUR ---
I have reviewed this patient and I concur with the Shift Assessment completed by the Licensed Practical Nurse today this shift.
[2018-12-24 04:00] VITALS: BP 115/64
--- NOTE | 2018-12-24 06:38 | NUR ---
ADMINISTERED ORDERED ANALGESIC FOR COMPLAINTS OF PAIN IN LEFT SIDE OF ABDOMEN. PT STATES PAIN OF 7 ON A SCALE OF 0-10.
--- NOTE | 2018-12-24 07:30 | NUR ---
REPORT RECIVED. PT LYING SEMI FOWLERS IN BED. SHE HAS A R HAND PIV INFUSING NS @125 AND AND R AC PIV SL. SPOKE WITH PT ABOUT PAIN MEDICATION SCHEDULE AND SHE UNDERSTANDS. SHES CURRENTLY ON 2L NC AND ON THE HEART MONITOR. RR EVEN AND UNLABORED. NO DISTRESS NOTED. BED LOCKED AND IN LOWEST POSITION, CALL LIGHT WITHIN REACH. WILL CTM
[2018-12-24 08:47] VITALS: BP 102/62
[2018-12-24 12:20] VITALS: BP 117/78
--- NOTE | 2018-12-24 16:00 | NUR ---
PATIENT SITTING IN ROOM IN BED. PATIENTS FAMILY AT BEDSIDE. NO DISTRESS. PATIENT IS ST ON TELEMETRY WITH RATE OF 110. CALL LIGHT WITHIN REACH.
[2018-12-24 17:33] VITALS: BP 92/58
[2018-12-24 20:00] VITALS: BP 108/70
--- NOTE | 2018-12-24 20:13 | NUR ---
EVENING ROUNDS COMPLETED. REPORT RECEIVED. PT SITTING UP IN BED WITH EYES OPEN, RR EVEN AND UNLABORED. BED IN LOW POSITION. NO S/S OF DISTRESS NOTED. 110 SINUS TACH ON TELEMETRY. RFA INFUSING NS ORDERED. INTRODUCED SELF TO PT. PT DENIES FURTHER NEEDS AT THIS TIME. CALL LIGHT IN REACH. WILL CTM.
[2018-12-25] VITALS: BP 124/72
--- NOTE | 2018-12-25 02:56 | NUR ---
I have reviewed this patient and I concur with the Shift Assessment completed by the Licensed Practical Nurse today this shift.
[2018-12-25 04:00] VITALS: BP 111/58
[2018-12-25 04:12] LABS: CALCIUM 7.7 mg/dL (8.5-10.1); CARBON DIOXIDE 25.3 mmol/L (21.0-32.0); CHLORIDE - SERUM 109 mmol/L (98-107); GLUCOSE 86 mg/dL (74-106); POTASSIUM - SERUM 3.3 mmol/L (3.5-5.1); SODIUM 142 mmol/L (136-145)
[2018-12-25 04:24] LABS: CALC OSMOLALITY 278 mosm/kg (275-300); CREATININE - SERUM 0.7 mg/dL (0.6-1.3); UREA NITROGEN 5 mg/dL (7-18); eGFR NON AFRICAN AMERICAN > 90 mL/min (90-120)
[2018-12-25 04:27] LABS: HEMATOCRIT 27.5 % (36.0-48.0); HEMOGLOBIN 9.3 g/dL (12-16); MCHC 33.8 g/dL (31.0-37.0); MCV 82.8 fL (80.0-100.0); PLATELET COUNT 151 10x3/uL (130-400); RBC 3.32 10x6/uL (4.00-5.40); RDW 15.2 % (11.5-14.5); WBC 10.8 10x3/uL (4.8-10.8)
[2018-12-25 05:10] LABS: EOSINOPHILS 2 % (0-7); LYMPHOCYTES 12 % (15-50); MONOCYTES 10 % (2-11); NEUTROPHILS 76 % (40-80); PLATELET ESTIMATE NORMAL
--- NOTE | 2018-12-25 05:15 | NUR ---
PT SITTING UP IN BED WITH EYES OPEN, RR EVEN AND UNLABORED. BED IN LOW POSITION. RESITED PIV IN RFA PER PT REQUEST. NO S/S OF DISTRESS NOTED. CALL LIGHT IN REACH. WILL CTM.
--- NOTE | 2018-12-25 05:38 | NUR ---
ADMINISTERED ORDERED ANALGESIC FOR COMPLAINTS OF PAIN IN LEFT SIDE, PT STATES PAIN OF AN 8 ON A SCALE OF 0-10.
[2018-12-25 08:44] VITALS: BP 102/55
[2018-12-25 13:50] VITALS: BP 128/83
--- NOTE | 2018-12-25 19:00 | NUR ---
PATIENT LAYING IN BED, NO COMPLAINTS AT THIS TIME. NO DISTRESS NOTED.
[2018-12-25 20:00] VITALS: BP 126/78
--- NOTE | 2018-12-25 21:59 | NUR ---
PATIENT LAYING IN BED. PATIENT HAS NO COMPLAINTS AT THIS TIME. NO DISTRESS NOTED.
[2018-12-26 00:10] VITALS: BP 138/76
[2018-12-26 04:00] VITALS: BP 137/75
[2018-12-26 05:17] LABS: BASOPHILS 0.1 % (0-2); EOSINOPHILS 1.6 % (0-7); HEMATOCRIT 26.3 % (36.0-48.0); HEMOGLOBIN 8.9 g/dL (12-16); IMMATURE GRANULOCYTES 0.2 % (0-5); MCH 27.7 pg (26.0-34.0); MCHC 33.8 g/dL (31.0-37.0); MCV 81.9 fL (80.0-100.0); MEAN PLATELET VOLUME 9.5 fL (7.4-10.4); MONOCYTES 9.2 % (2-11); NEUTROPHILS 69.9 % (40-80); RBC 3.21 10x6/uL (4.00-5.40); WBC 8.6 10x3/uL (4.8-10.8)
[2018-12-26 05:28] LABS: PLATELET COUNT 187 10x3/uL (130-400)
[2018-12-26 05:31] LABS: CALC OSMOLALITY 280 mosm/kg (275-300); CALCIUM 7.9 mg/dL (8.5-10.1); CHLORIDE - SERUM 108 mmol/L (98-107); CREATININE - SERUM 0.6 mg/dL (0.6-1.3); GLUCOSE 86 mg/dL (74-106); SODIUM 143 mmol/L (136-145); UREA NITROGEN 4 mg/dL (7-18); eGFR NON AFRICAN AMERICAN > 90 mL/min (90-120)
--- NOTE | 2018-12-26 08:22 | NUR ---
ALERT AND ORIENTED. PAIN MED GIVEN. EATING BREAKFAST. RESP EVEN AND UNLABORED. CL IM REACH.
[2018-12-26 09:21] VITALS: BP 135/84
[2018-12-26] MEDS ORDERED: HYDROCODON-ACE1 EA10 PO (11:43)
[2018-12-26] MEDS ORDERED: K-TAB10 MEQ PO (11:44)
[2018-12-26] MEDS ORDERED: LEVAQUIN750 MG PO (11:45)
[2018-12-26] MEDS ORDERED: FLOMAX0.4 MG PO (11:47)
--- NOTE | 2018-12-26 12:12 | NUR ---
DC'D SL WITH CATH INTACT.
--- NOTE | 2018-12-26 13:55 | NUR ---
NO CHANGE IN ASSESSMENT. DC'D SL WITH CATH INTACT. WILL DC HOME TODAY.
--- NOTE | 2018-12-26 14:51 | NUR ---
FAMILY HERE TO TAKE PATIENT HOME. WILL BE ASSISTED TO CAR IN WC PER STAFF. TELEMETRY RETURNED TO BRUSH WORKER. ON CHANGE IN ASSESSMENT.
--- NOTE | 2018-12-27 07:10 | MORECARE ---
CASE MANAGEMENT DISCHARGE SUMMARY PATIENT: CHICO FORD R UNIT: [id number] ADM DATE: 12/22/18 AGE: 33 : [birth year] SEX: F ROOM/BED: D.2108 AUTHOR: HUMZA BARTLETT PHYSICIAN: REFERRING PHYSICIAN: BRENDAN JUNE MD DATE OF SERVICE: 12/27/18 Discharge Plan Patient Name: CHICO FORD Facility: [facility]:[place] : 1985 Planned Disposition: Home Anticipated Discharge Date: 12/26/18 Discharge Date: 12/26/2018 Expected LOS: 4 Initial Reviewer: [email or web address] Initial Review Date: 12/27/2018 Generated: 12/27/18 8:10 am Patient Name: CHICO FORD Page [phone] at 0710 All edits/amendments must be made on the electronic document DICTATION DATE: 12/27/18709 CERTIFIED TECHNICIAN: LIZA 12/27/1810 RPT#: [id number] DC DATE:12/26/18 STATUS: DIS IN [facility] [address] [place] [address] END OF REPORT
== END 2018-12-26 14:53 | disposition home or self-care (01) | DRG 690 ==
LOC: D.ER 05:03 → D.M2 07:44
PROVIDERS: Family Medicine; General Practice; ADMIT Internal Medicine Nephrology; ATTEND Internal Medicine Nephrology
PROC: BT121ZZ Fluoroscopy of Left Kidney using Low Osmolar Contrast (ICD-10-PCS; principal; 2018-12-22 16:51)
DX: N12 Tubulo-interstitial nephritis, not specified as acute or chronic (principal); F17.213 Nicotine dependence, cigarettes, with withdrawal; N20.0 Calculus of kidney; N39.0 Urinary tract infection, site not specified; E87.6 Hypokalemia; D64.9 Anemia, unspecified; N13.5 Crossing vessel and stricture of ureter without hydronephrosis

== ENCOUNTER 2019-01-01 21:16 | Emergency (ER) | payer MEDICAID ==
[~2019-01-01] VITALS: Ht 162.6 cm; Wt 100.0 kg
[~2019-01-01 21:16] MED LIST changes: +FLOMAX0.4 MG PO; +HYDROCODON-ACE1 EA10 PO; +K-TAB10 MEQ PO; +LEVAQUIN750 MG PO
[2019-01-01 21:46] VITALS: Ht 162.6 cm; Wt 100.0 kg
[2019-01-01 22:38] LABS: APPEARANCE CLEAR (CLEAR); BILIRUBIN NEGATIVE (NEGATIVE); COLOR YELLOW (YELLOW); GLUCOSE NEGATIVE (NEGATIVE); HCG URINE NEGATIVE (NEGATIVE); KETONE NEGATIVE (NEGATIVE); NITRITE NEGATIVE (NEGATIVE); PROTEIN NEGATIVE (NEGATIVE); SPECIFIC GRAVITY 1.025 (1.005-1.020); UROBILINOGEN NORMAL (NORMAL)
[2019-01-01 22:39] LABS: BACTERIA MODERATE /hpf (NONE SEEN); EPITHELIAL CELLS 0-5 /hpf (0-5); RED CELLS - URINE 0-5 /hpf (0-5); WHITE CELLS - URINE 0-5 /hpf (0-5)
[2019-01-01 22:54] LABS: BASOPHILS 0.2 % (0-2); EOSINOPHILS 1.3 % (0-7); HEMATOCRIT 30.9 % (36.0-48.0); HEMOGLOBIN 10.2 g/dL (12-16); IMMATURE GRANULOCYTES 0.3 % (0-5); LYMPHOCYTES 24.5 % (15-50); MCH 27.5 pg (26.0-34.0); MCV 83.3 fL (80.0-100.0); MEAN PLATELET VOLUME 8.7 fL (7.4-10.4); MONOCYTES 6.6 % (2-11); NEUTROPHILS 67.1 % (40-80); RBC 3.71 10x6/uL (4.00-5.40); RDW 15.5 % (11.5-14.5); WBC 11.5 10x3/uL (4.8-10.8)
[2019-01-01 22:56] LABS: PLATELET COUNT 257 10x3/uL (130-400)
[2019-01-01 23:04] LABS: ALBUMIN 2.8 g/dL (3.4-5.0); ALKALINE PHOSPHATASE 98 U/L (46-116); ALT (SGPT) 21 U/L (10-68); BILIRUBIN - TOTAL 0.15 mg/dL (0.2-1.3); CALC OSMOLALITY 281 mosm/kg (275-300); CALCIUM 8.4 mg/dL (8.5-10.1); CARBON DIOXIDE 29.9 mmol/L (21.0-32.0); CHLORIDE - SERUM 106 mmol/L (98-107); CREATININE - SERUM 0.8 mg/dL (0.6-1.3); GLUCOSE 100 mg/dL (74-106); POTASSIUM - SERUM 3.9 mmol/L (3.5-5.1); PROTEIN - SERUM 7.1 g/dL (6.4-8.2); SODIUM 141 mmol/L (136-145); UREA NITROGEN 16 mg/dL (7-18); eGFR NON AFRICAN AMERICAN 88 mL/min (90-120)
[2019-01-01 23:08] LABS: AMYLASE - SERUM 41 U/L (25-115); LIPASE 107 U/L (73-393)
[2019-01-01 23:09] LABS: TROPONIN-I < 0.017 ng/mL (0.000-0.060)
[2019-01-02] MEDS ORDERED: HYDROCODON-ACE1 EA10 PO (01:50)
[2019-01-02 02:12] VITALS: BP 128/68
== END 2019-01-02 02:12 | disposition home or self-care (01) ==
LOC: D.ER 21:16
PROVIDERS: Family Medicine
DX: N13.2 Hydronephrosis with renal and ureteral calculous obstruction (principal)

== ENCOUNTER 2019-01-04 07:55 | Inpatient (IN) | payer MEDICAID ==
[~2019-01-04] VITALS: Ht 162.6 cm; Wt 99.8 kg
--- NOTE | ~2019-01-04 | HEMODYNAMI ---
PATIENT:CHICO FORD MEDICAL RECORD: [id number] : 87 LOCATION:DEX ADMISSION DATE: 01/04/19 Generatedon:01/04/201910:47 Patient name: CHICO FORD Patient #: [id number] SSN: DO B: 1985 Date of study: 01/04/2019 Page: Of Hemodynamic Procedure Report Patient Data Patient Demographics Procedure consent was obtained First Name: CHICO Gender: Female Last Name: LILIANA : 1985 Middle Initial: R Age: 33 year(s) Patient #: [id number] Race: Unknown Additional ID: [id number] Contact details [address]: [address] [place] [address] State: [place] City: [place] Zip code: [address] Past Medical History Allergies Allergen Reaction Date Comments Reported Aspirin 01/04/2019 Toradol 01/04/2019 Bactrim 01/04/2019 Other allergy 01/04/2019 tramadol, flomax,lates Admission Admission Data Admission Date: 01/04/2019 Admission Time: 7:55 Procedure Procedure Types Cath Procedure Peripheral Cath Diagnostic Procedure Diesel Engine Specialist Peripheral Procedures Nephro Nephrostomy Tubes Procedure Description Procedure Date Procedure Date: 01/04/2019 Procedure Start Time: 9:57 Procedure Staff Name Function Ed Hagan MD Performing Physician Katherine Horvath RT Extrusion Utility Worker Louise Arreguin RN Nurse Bailee Irwin RN Nurse SANJANA GARCIA RT Scrub Procedure Data Cath Procedure Fluoroscopy Diagnostic fluoroscopy Total fluoroscopy Time: 9 time: 9 min min Diagnostic fluoroscopy Total fluoroscopy dose: 370 dose: 370 mGy mGy Contrast Material Contrast Material Type Amount (ml) Isovue 300 60 Procedure Medications Medication Administration Route Dosage Heparin Flush Bag added to field 1 bags (1000units/500ml NS) Lidocaine 1% added to field 20 Benadryl I.V. 25 mg Fentanyl I.V. 50 mcg Versed I.V. 1 mg Versed I.V. 1 mg Fentanyl I.V. 25 mcg Fentanyl I.V. 25 mcg Versed I.V. 0.5 mg Fentanyl I.V. 25 mcg Versed I.V. 0.5 mg Fentanyl I.V. 25 mcg Versed I.V. 0.5 mg Fentanyl I.V. 25 mcg Versed I.V. 0.5 mg Fentanyl I.V. 25 mcg Versed I.V. 1 mg Fentanyl I.V. 50 mcg Versed I.V. 1 mg Fentanyl I.V. 50 mcg Hemodynamics Rest Heart Rate: 53 (bpm) Snapshots Pre Cath Intra NCS Post Cath Vital Signs Time Heart Resp SPO2 etCO2 NIBP (mmHg) Rhythm Pain Sedation Rate (ipm) (%) (mmHg) Status Level (bpm) 9:32:02 56 100 37.7 147/82(109) NSR 0 (11) 10(A) , No pain 9:37:01 56 16 100 38.4 Measuring NSR 0 (11) 10(A) , No pain 9:37:52 57 17 100 36.9 148/82(114) NSR 0 (11) 10(A) , No pain 9:42:18 59 13 100 36.9 141/77(108) NSR 0 (11) 10(A) , No pain 9:46:41 73 17 100 37.7 154/84(109) NSR 0 (11) 10(A) , No pain 9:51:03 64 15 100 36.9 152/87(110) NSR 0 (11) 10(A) , No pain 9:56:02 61 15 100 37.7 Measuring NSR 0 (11) 10(A) , No pain 9:56:35 75 17 100 36.9 141/83(124) NSR 0 (11) 10(A) , No pain 10:00:54 74 19 100 36.1 143/85(115) NSR 0 (11) 10(A) , No pain 10:04:26 76 16 100 39.9 143/87(105) NSR 0 (11) 8(A) , No pain 10:08:42 76 16 100 39.1 128/81(107) NSR 0 (11) 8(A) , No pain 10:13:00 67 15 100 41.4 144/77(110) NSR 0 (11) 8(A) , No pain 10:17:18 76 12 100 41.4 144/82(113) NSR 0 (11) 8(A) , No pain 10:21:42 74 14 100 41.4 140/75(125) NSR 0 (11) 8(A) , No pain 10:26:06 79 11 99 43.7 154/76(117) NSR 0 (11) 8(A) , No pain 10:31:05 69 11 99 44.5 Measuring NSR 0 (11) 8(A) , No pain 10:31:38 70 12 98 44.5 147/79(107) NSR 0 (11) 8(A) , No pain 10:36:00 72 15 98 43.7 167/94(132) NSR 0 (11) 8(A) , No pain 10:40:28 72 56 100 44.5 170/92(119) NSR 0 (11) 8(A) , No pain 10:44:51 71 12 100 43.7 158/89(118) NSR 0 (11) 8(A) , No pain 10:46:58 64 12 100 42.9 163/86(119) NSR 0 (11) 8(A) , No pain Medications Time Medication Route Dose Verified Delivered Reason Notes Effec tiveness by by 9:45:55 Heparin Flush added 1 Ed Ward used for Bag to bags Danya Hagan MD procedure (1000units/500ml field KHOURY NS) 9:46:11 Lidocaine 1% added 20ml Ed Ward used for to vial Danya Hagan MD procedure field KHOURY 9:46:30 Benadryl I.V. 25 mg Ed Gil for Rodríguez Hagan RN sedation 10:01:20 Fentanyl I.V. 50 Ed Louise for mcg Rodríguez Hagan RN sedation 10:01:32 Versed I.V. 1 mg Ed Castañedai for Rodríguez Hagan RN sedation 10:04:48 Versed I.V. 1 mg Ed Castañedai for Rodríguez Hagan RN sedation 10:04:57 Fentanyl I.V. 25 Ed Castañedai for mcg Rodríguez Hagan RN sedation 10:08:12 Fentanyl I.V. 25 Ed Castañedai for mcg Rodríguez Hagan RN sedation 10:12:47 Versed I.V. 0.5 Ed Louise for mg Rodríguez Hagan RN sedation 10:12:57 Fentanyl I.V. 25 Ed Louise for mcg Burda, Arreguin RN sedation 10:17:00 Versed I.V. 0.5 Ed Louise for mg Burda, Arreguin RN sedation 10:17:14 Fentanyl I.V. 25 Ed Louise for mcg Burda, Arreguin RN sedation 10:20:13 Fentanyl I.V. 50 Ed Louise for mcg Burda, Arreguin RN sedation 10:22:15 Versed I.V. 0.5 Ed Louise for mg Burda, Arreguin RN sedation 10:22:23 Fentanyl I.V. 25 Ed Louise for mcg Burda, Arreguin RN sedation 10:34:12 Versed I.V. 0.5 Ed Louise for mg Burda, Arreguin RN sedation 10:34:19 Fentanyl I.V. 25 Ed Louise for mcg Burda, Arreguin RN sedation 10:34:31 Versed I.V. 1 mg Ed Louise for Burda, Arreguin RN sedation 10:34:40 Fentanyl I.V. 50 Ed Louise for mcg Burda, Arreguin RN sedation 10:35:41 Versed I.V. 1 mg Ed Louise for Burda, Arreguin RN sedation Procedure Log Time Note 9:02:47 Use device set IR Diagnostic 9:03:16 Tegaderm 4 x 4 (1626W) opened to sterile field. 9:03:17 Sterile Angiographic Pack opened to sterile field. 9:03:18 Bag Decanter (2002S) opened to sterile field. 9:03:56 KIT, INTRODUCER ACCUSTICK II W/C ([id number]) opened to sterile field. 9:23:26 Time tracking: Regular hours (M-F 7:00 - 5:00) 9:23:40 Plan of Care:Hemodynamics will remain stable., Cardiac rhythm will remain stable., Comfort level will be maintained., Respiratory function will remain adequate., Patient/ family verbilizes understanding of procedure., Procedure tolerated without complication., Recovers from procedure without complications.. 9:23:47 Patient received from Outpatients to IR Alert and oriented. Tansferred to table in Prone position. 9:23:52 Signed procedure consent form obtained from patient. 9:23:57 H&P Date Dictated: 01/04/2019 Within 30 days and on chart.. 9:24:01 Correct patient and procedure confirmed by team. 9:24:03 Pre-procedure instructions explained to patient. 9:24:04 Pre-op teaching completed and patient verbalized understanding. 9:24:06 Family in waiting room. 9:24:09 Patient NPO since Midnight. 9:24:26 Patient allergic to Aspirin 9:24:39 Patient allergic to Toradol 9:24:54 Patient allergic to Bactrim 9:26:04 Patient allergic to Other allergytramadol, flomax,lates 9:26:18 Is the patient allergic to Iodine/contrast media? No. 9:26:22 Is patient on blood thinner?No 9:26:25 Patient diabetic? No. 9:26:39 - 9:26:40 ----Pre-sedation anethsthesia assessment.---- 9:26:43 Previous problem with sedation/anesthesia? No ? 9:26:46 Snore? No 9:26:47 Sleep apnea? No 9:26:49 Deviated septum? No 9:26:52 Opens mouth fully? Yes 9:26:54 Sticks out tongue? Yes 9:26:59 Airway obstruction? No ? 9:27:05 Dentures? No ? 9:27:09 - 9:27:30 IV patent on arrival in right wrist with D5/.45%NaCl at KVO. 9:27:49 Left renal area was prepped with chlora-prep and draped in sterile fashion 9:28:05 - 9:28:19 Fire Safety Assessment: A--An alcohol-based skin anteseptic being used preoperatively., C--Open oxygen or nitrous oxide is being used. 9:29:05 - 9:30:35 ECG and BP/O2 sat monitors applied to patient. 9:30:37 Vital chart was started 9:30:39 Baseline sample Acquired. 9:30:40 Full Disclosure recording started 9:30:43 - 9:30:46 Baseline sample Acquired. 9:31:33 Baseline sample Acquired. 9:32:34 - 9:45:55 Heparin Flush Bag (1000units/500ml NS) 1 bags added to field was administered by Ed Hagan MD; used for procedure; 9:46:11 Lidocaine 1% 20ml vial added to field was administered by Ed Hagan MD; used for procedure; 9:46:30 Benadryl 25 mg I.V. was administered by Louise Arreguin RN; for sedation; 9:56:31 Physician arrived 9:57:12 --------ALL STOP TIME OUT------ 9:57:12 Final Timeout: patient, procedure, and site verified with staff and physician. All members of the team are in agreement. 9:57:17 Procedure started. 9:57:29 Local anesthetic to Left Renal area with Lidocaine 1% by Ed Hagan MD.INITIAL ACCESS ONLY 10:01:20 Fentanyl 50 mcg I.V. was administered by Louise Arreguin RN; for sedation; 10:01:32 Versed 1 mg I.V. was administered by Louise Arreguin RN; for sedation; 10:02:44 CHIBA 22 X 15 needle opened to sterile field. 10:04:48 Versed 1 mg I.V. was administered by Louise Arreguin RN; for sedation; 10:04:57 Fentanyl 25 mcg I.V. was administered by Louise Arreguin RN; for sedation; 10:08:12 Fentanyl 25 mcg I.V. was administered by Louise Arreguin RN; for sedation; 10:12:47 Versed 0.5 mg I.V. was administered by Louise Arreguin RN; for sedation; 10:12:57 Fentanyl 25 mcg I.V. was administered by Louise Arreguin RN; for sedation; 10:16:25 NITINOL .018 80cm wire ([id number]) opened to sterile field. 10:17:00 Versed 0.5 mg I.V. was administered by Louise Arreguin RN; for sedation; 10:17:14 Fentanyl 25 mcg I.V. was administered by Louise Arreguin RN; for sedation; 10:20:12 GLIDE WIRE ANGLE 180cm ([id number]) opened to sterile field. 10:20:13 Fentanyl 50 mcg I.V. was administered by Louise Arreguin RN; for sedation; 10:22:15 Versed 0.5 mg I.V. was administered by Louise Arreguin RN; for sedation; 10:22:23 Fentanyl 25 mcg I.V. was administered by Louise Arreguin RN; for sedation; 10:29:52 BENTSON 145cm wire (Z07578) opened to sterile field. 10:32:15 AMPLATZ Super stiff 180cm wire ([id number]) opened to sterile field. 10:34:12 Versed 0.5 mg I.V. was administered by Louise Arreguin RN; for sedation; 10:34:19 Fentanyl 25 mcg I.V. was administered by Louise Arreguin RN; for sedation; 10:34:31 Versed 1 mg I.V. was administered by Louise Arreguin RN; for sedation; 10:34:40 Fentanyl 50 mcg I.V. was administered by Louise Arreguin RN; for sedation; 10:35:30 BAG, DRAINAGE EMPTY 600ML W/MARIA E (VZH304) opened to sterile field. 10:35:41 Versed 1 mg I.V. was administered by Louise Arreguin RN; for sedation; 10:36:24 Abscession 8Fr drainage catheter ([id number]) opened to sterile field. 10:37:01 STOPCOCK 3-Way Large Bore (L63773) opened to sterile field. 10:43:56 Procedure ended.(Physican Out) 10:44:21 Fluoroscopy time 09.00 minutes. 10:44:43 Fluoroscopy dose: 370 mGy 10:44:43 Flurop Dose total: 370 10:44:49 Contrast amount:Isovue 300 60ml. 10:44:52 Procedure and supply charges have been captured, reviewed, submitted an d are correct. 10:45:45 Report given to Outpatients. 10:47:38 Vital chart was stopped Device Usage Item Name Manufacture Quantity Catalog Hospital Part Current Minima l Lot# / Number Charge Number Stock Stock Serial# Code Tegaderm 4 x 3M 1 1626W [id number] 5 4 (1626W) Sterile Cardinal 1 [id number] 011866 567238 5 Angiographic Health Pack Bag Decanter Microtek 1 2001S 623720 55921 386411 5 (2001S) Medical Inc. KIT, [place] 1 [id number] 706464 773133 715240 5 INTRODUCER Scientific ACCUSTICK II W/C ([id number]) CHIBA 22 X [employer] 1 J95343 264861 678760 5 8411969 15 needle NITINOL .018 Medtronic 1 A696201 056979 529680 5 [id number] 80cm wire (A689325) GLIDE WIRE Terumo 1 NC1702 564647 377102 778744 5 ANGLE 180cm (OR9805) BENTSON [employer] 1 C38682 740517 410305 5 145cm wire (F77417) AMPLATZ [place] 1 [id number] 891378 092315 883543 5 Super stiff Scientific 180cm wire ([id number]) BAG, [employer] 1 NYV398 005002 619218 947753 5 DRAINAGE EMPTY 600ML W/MARIA E (JAM817) Abscession Angiodynamics 1 [id number] 174707 669617 107153 5 8Fr drainage catheter (01781275) [facility] 1 P34716 739002 0318 816253 5 [id number] 3-Way Large Bore (L28988) Signature Audit [place] Stage Time Signature Unsigned Intra-Procedure 01/04/2019 Katherine Horvath 10:47:34 AM RT(R) [facility] [address] [place] [address]
[2019-01-04 08:22] LABS: BASOPHILS 0.2 % (0-2); EOSINOPHILS 1.5 % (0-7); HEMATOCRIT 35.3 % (36.0-48.0); HEMOGLOBIN 11.8 g/dL (12-16); IMMATURE GRANULOCYTES 0.2 % (0-5); LYMPHOCYTES 21.2 % (15-50); MCHC 33.4 g/dL (31.0-37.0); MCV 83.6 fL (80.0-100.0); MEAN PLATELET VOLUME 8.4 fL (7.4-10.4); MONOCYTES 6.8 % (2-11); NEUTROPHILS 70.1 % (40-80); PLATELET COUNT 303 10x3/uL (130-400); RBC 4.22 10x6/uL (4.00-5.40); RDW 15.5 % (11.5-14.5); WBC 11.1 10x3/uL (4.8-10.8)
[2019-01-04 08:37] LABS: CALC OSMOLALITY 281 mosm/kg (275-300); CARBON DIOXIDE 30.5 mmol/L (21.0-32.0); CHLORIDE - SERUM 103 mmol/L (98-107); CREATININE - SERUM 0.8 mg/dL (0.6-1.3); GLUCOSE 90 mg/dL (74-106); POTASSIUM - SERUM 4.1 mmol/L (3.5-5.1); SODIUM 141 mmol/L (136-145); UREA NITROGEN 15 mg/dL (7-18); eGFR NON AFRICAN AMERICAN 88 mL/min (90-120)
[2019-01-04 08:39] LABS: APTT 30.3 SECONDS (22.8-39.4); INR 1.03 (0.85-1.17)
[2019-01-04 08:59] VITALS: BMI 37.8
--- NOTE | 2019-01-04 11:33 | NUR ---
1130-FINGER FOOD TRAY TO ROOM.
--- NOTE | 2019-01-04 12:51 | NUR ---
1115-REC'D REPORT FROM CO-WORKER LAI UREÑA. VSS.
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
--- NOTE | 2019-01-04 13:13 | NUR ---
PT TO ROOM FROM PROCEDURE. PT IS AAO X 4. FAMILY IS AT BEDSIDE. PT REPORTS PAIN 8/10 TO BACK LEFT SIDE. DRESSING TO LEFT BACK/FLANK AREA IS C/D/I. DRAIN IN PLACE AND DRAINING WITHOUT DIFFICULTY. BLOOD NOTED TO DRAIN BAG. BED IS IN THE LOWEST POSITION. CALL LIGHT AND BEDSIDE TABLE ARE WITHIN REACH. SIDE RAILS X 2.
[2019-01-04 13:34] VITALS: BP 127/64
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
[2019-01-04 21:10] VITALS: BP 120/70
[2019-01-05 01:14] VITALS: BP 103/46
--- NOTE | 2019-01-05 03:14 | NUR ---
PT RESTING IN BED. EYES CLOSED. NO SIGNS OF DISTRESS. BREATHING EVEN AND UNLABORED. IV SITE RT FA DRESSING CLEAN DRY AND INTACT. NO SIGNS OF INFECTION. BOWEL SOUNDS ACTIVE. COLLIN DRAIN LT LOWER BACK DRESSING CLEAN DRY AND INTACT AND DRAINNING. WILL CONTINUE PLAN OF CARE. CALL LIGHT IN REACH. BED LOWERED AND LOCKED. BED RAILS UP X2.
[2019-01-05 05:38] VITALS: BP 124/80
--- NOTE | 2019-01-05 07:05 | NUR ---
ALERT AND ORIENTED, RESTING IN BED. NO C/O PAIN, DILAUDID DIRECTOR OF BUSINESS DEVELOPMENT MANAGING PAIN. NO S/S OF ACUTE DISTRESS NOTED. UP WITH STANDBY ASSIST. REFUSED SCDS. LEFT NEPHROSTOMY TUBE, DRAINED 300ML OUT YELLOW IN COLOR. IV TO RIGHT FOREARM, NS INFUSING @ 30ML/HR. SITE PATENT WITHOUT REDNESS OR SWELLING. PT DENIES ANY NEEDS. CALL LIGHT IN REACH. WILL CONTINUE TO MONITOR.
[2019-01-05 07:29] VITALS: Ht 162.6 cm; Wt 99.8 kg
[2019-01-05 09:40] VITALS: BP 95/53
--- NOTE | 2019-01-05 12:03 | NUR ---
I have reviewed this patient and I concur with the Shift Assessment completed by the Licensed Practical Nurse today this shift.
[2019-01-05 13:03] VITALS: BP 97/61
[2019-01-05] MEDS ORDERED: VALIUM10 MG PO (14:57)
[2019-01-05] MEDS ORDERED: COLACE100 MG PO (14:57)
[2019-01-05] MEDS ORDERED: HYDROCODON-ACE1 EAC7 PO (14:58)
--- NOTE | 2019-01-05 15:40 | NUR ---
DISCHARGED PT HOME WITH FAMILY VIA WHEELCHAIR. DISCONTINUED IV, CATHETER TIP INTACT. WENT OVER DISCHARGE INSTRUCTIONS WITH PT, PT VERBALIZED UNDERSTANDING. DEMONSTRATED HOW TO FLUSH NEPHROSTOMY DRAIN WITH FAMILY AND PT. SENT HOME EXTRA FLUSHES WITH PT. PT DENIES ANY NEEDS.
--- NOTE | 2019-01-05 15:48 | MORECARE ---
CASE MANAGEMENT DISCHARGE SUMMARY PATIENT: CHICO FORD R UNIT: [id number] ADM DATE: 01/04/19 AGE: 33 : [birth year] SEX: F ROOM/BED: D.2202 AUTHOR: HUMZA BARTLETT PHYSICIAN: REFERRING PHYSICIAN: GURVINDER RAVI MD DATE OF SERVICE: 01/05/19 Discharge Plan Patient Name: CHICO FORD Facility: [facility]:[place] : 1985 Planned Disposition: Home or Self Care Anticipated Discharge Date: Discharge Date: 01/05/2019 Expected LOS: Initial Reviewer: [email or web address] Initial Review Date: 01/04/2019 Generated: 01/05/19 4:47 pm Patient Name: CHICO FORD Page 78349 at 1548 All edits/amendments must be made on the electronic document DICTATION DATE: 01/05/19 1547 DYNAMITER: LIZA 01/05/19 1547 RPT#: [id number] DC DATE:01/05/19 STATUS: DIS IN [facility] [address] [place] [address] END OF REPORT
--- NOTE | 2019-01-05 16:10 | MORECARE ---
CASE MANAGEMENT DISCHARGE SUMMARY PATIENT: CHICO FORD UNIT: [id number] ADM DATE: 01/04/19 AGE: 33 : [birth year] SEX: F ROOM/BED: D.2202 AUTHOR: HUMZA BARTLETT PHYSICIAN: REFERRING PHYSICIAN: GURVINDER RAVI MD DATE OF SERVICE: 01/05/19 Discharge Plan Patient Name: CHICO FORD Facility: [facility]:[place] : 1985 Planned Disposition: Home or Self Care Anticipated Discharge Date: Discharge Date: 01/05/2019 Expected LOS: Initial Reviewer: [email or web address] Initial Review Date: 01/04/2019 Generated: 01/05/19 5:09 pm Comments DCP- Discharge Planning Updated by [email or web address]: Misa Thompson on 01/05/19 3:[address] Patient Name: CHICO FORD Admission Status: Elective Accout number: [id number] Admission Date: 01-04-2019 : 1985 Admission Diagnosis: Attending: VIDA RAVI Current LOS: 1 Anticipated DC Date: Planned Disposition: Home or Self Care Primary Insurance: [place] [employer] OPTIONS [place] Discharge Planning Comments: CM met with patient to complete initial dc planning assessment. CM educated patient on the CM role and verbal consent given by patient to complete assessment. Patient lives at home with her mother & her children where she is independent with her care. At discharge patient plans to return home and feels this is a safe discharge. CM discussed availability of home health, rehab services, and medical equipment. Her mom will do the flushing and care for her tube. Patient denied known discharge needs at this time. CM will continue to follow and will assist as needed with dc plans/needs. Handling Tech: Misa Thompson DCPIA - Discharge Planning Initial Assessment Updated by [email or web address]: Misa Thompson on 01/05/19 4:01 pm * Is the patient Alert and Oriented? Yes * [facility] * Preadmission Environment Home with Family * ADLs Independent * Equipment None * List name and contact numbers for known caregivers / representatives who currently or will assist patient after discharge: ALANNA HUNTER [phone] * Verbal permission to speak to the caregivers and representatives has been obtained from the patient. N/A * Community resources currently utilized None * Additional services required to return to the preadmission environment? Yes * Can the patient safely return to the preadmission environment? Yes * Has this patient been hospitalized within the prior 30 days at any hospital? No Last DP export: 01/05/19 2:48 p Patient Name: CHICO FORD Page 88212 at 1610 All edits/amendments must be made on the electronic document DICTATION DATE: 01/05/191608 INSPECTOR GENERAL: LIZA 01/05/191608 RPT#: [id number] DC DATE:01/05/19 STATUS: DIS IN [facility] [address] [place] [address] END OF REPORT
--- NOTE | 2019-01-05 16:29 | MORECARE ---
CASE MANAGEMENT DISCHARGE SUMMARY PATIENT: CHICO FORD UNIT: [id number] ADM DATE: 01/04/19 AGE: 33 : [birth year] SEX: F ROOM/BED: D.2202 AUTHOR: HUZMA BARTLETT PHYSICIAN: REFERRING PHYSICIAN: GURVINDER RAVI MD DATE OF SERVICE: 01/05/19 Discharge Plan Patient Name: CHICO FORD Facility: [facility]:[place] : 1985 Planned Disposition: Home or Self Care Anticipated Discharge Date: Discharge Date: 01/05/2019 Expected LOS: Initial Reviewer: [email or web address] Initial Review Date: 01/04/2019 Generated: 01/05/19 5:29 pm Comments DCP- Discharge Planning Updated by [email or web address]: Misa Thompson on 01/05/19 3:[address] ENGRAVER PANTOGRAPH ASKED ME IF I CAOULD FIND THE PATIENT A BOARD RUNNER. I SPOKE WITH VINEET AT DR PACHECO OFFICE AND SHE WILL TAKE THE PATIENT HER APPOINTMENT FOR Jan AT 10:30 I CALLED THE PATIENT TO LET HER KNOW WHEN AND WHERE HER APPOINTMENT IS DCP- Discharge Planning Updated by [email or web address]: Misa Thompson on 01/05/19 3:[address] Patient Name: CHICO FORD Admission Status: Elective Accout number: [id number] Admission Date: 01-04-2019 : 1985 Admission Diagnosis: Attending: VIDA RAVI Current LOS: 1 Anticipated DC Date: Planned Disposition: Home or Self Care Primary Insurance: [facility] PRIVATE OPTIONS [facility] Discharge Planning Comments: CM met with patient to complete initial dc planning assessment. CM educated patient on the CM role and verbal consent given by patient to complete assessment. Patient lives at home with her mother & her children where she is independent with her care. At discharge patient plans to return home and feels this is a safe discharge. CM discussed availability of home health, rehab services, and medical equipment. Her mom will do the flushing and care for her tube. Patient denied known discharge needs at this time. CM will continue to follow and will assist as needed with dc plans/needs. Vascular Technologist Sonographer: Misa Thompson DCPIA - Discharge Planning Initial Assessment Updated by [email or web address]: Misa Thompson on 01/05/19 4:01 pm * Is the patient Alert and Oriented? Yes * [facility] * Preadmission Environment Home with Family * ADLs Independent * Equipment None * List name and contact numbers for known caregivers / representatives who currently or will assist patient after discharge: ALANNA HUNTER [phone] * Verbal permission to speak to the caregivers and representatives has been obtained from the patient. N/A * Community resources currently utilized None * Additional services required to return to the preadmission environment? Yes * Can the patient safely return to the preadmission environment? Yes * Has this patient been hospitalized within the prior 30 days at any hospital? No Last DP export: 01/05/19 3:10 p Patient Name: CHICO FORD Page 16100 at 1629 All edits/amendments must be made on the electronic document DICTATION DATE: 01/05/191628 MANAGER CODING: LIZA 01/05/199 RPT#: [id number] DC DATE:01/05/19 STATUS: DIS IN [facility] [address] [place] [address] END OF REPORT
--- NOTE | 2019-01-06 12:12 | MORECARE ---
CASE MANAGEMENT DISCHARGE SUMMARY PATIENT: CHICO FORD UNIT: [id number] ADM DATE: 01/04/19 AGE: 33 : [birth year] SEX: F ROOM/BED: D.2202 AUTHOR: HUMZA BARTLETT PHYSICIAN: REFERRING PHYSICIAN: GURVINDER RAVI MD DATE OF SERVICE: 01/06/19 Discharge Plan Patient Name: CHICO FORD Facility: [facility]:[place] : 1985 Planned Disposition: Home or Self Care Anticipated Discharge Date: Discharge Date: 01/05/2019 Expected LOS: Initial Reviewer: [email or web address] Initial Review Date: 01/04/2019 Generated: 01/06/19 1:12 pm Comments DCP- Discharge Planning Updated by [email or web address]: Misa Thompson on 01/05/19 3:[address] PIPING SUPERVISOR ASKED ME IF I CAOULD FIND THE PATIENT A BAILING MACHINE OPERATOR. I SPOKE WITH VINEET AT DR PACHECO OFFICE AND SHE WILL TAKE THE PATIENT HER APPOINTMENT FOR Jan AT 10:30 I CALLED THE PATIENT TO LET HER KNOW WHEN AND WHERE HER APPOINTMENT IS DCP- Discharge Planning Updated by [email or web address]: Misa Thompson on 01/05/19 3:[address] Patient Name: CHICO FORD Admission Status: Elective Accout number: [id number] Admission Date: 01-04-2019 : 1985 Admission Diagnosis: Attending: VIDA RAVI Current LOS: 1 Anticipated DC Date: Planned Disposition: Home or Self Care Primary Insurance: [facility] PRIVATE OPTIONS [facility] Discharge Planning Comments: CM met with patient to complete initial dc planning assessment. CM educated patient on the CM role and verbal consent given by patient to complete assessment. Patient lives at home with her mother & her children where she is independent with her care. At discharge patient plans to return home and feels this is a safe discharge. CM discussed availability of home health, rehab services, and medical equipment. Her mom will do the flushing and care for her tube. Patient denied known discharge needs at this time. CM will continue to follow and will assist as needed with dc plans/needs. Plastic Straightening Roll Operator: Misa Thompson DCPIA - Discharge Planning Initial Assessment Updated by [email or web address]: Misa Thompson on 01/05/19 4:01 pm * Is the patient Alert and Oriented? Yes * [facility] * Preadmission Environment Home with Family * ADLs Independent * Equipment None * List name and contact numbers for known caregivers / representatives who currently or will assist patient after discharge: ALANNA HUNTER [phone] * Verbal permission to speak to the caregivers and representatives has been obtained from the patient. N/A * Community resources currently utilized None * Additional services required to return to the preadmission environment? Yes * Can the patient safely return to the preadmission environment? Yes * Has this patient been hospitalized within the prior 30 days at any hospital? No Last DP export: 01/05/19 3:29 p Patient Name: CHICO FORD Page 92347 at 1212 All edits/amendments must be made on the electronic document DICTATION DATE: 01/06/19 1212 DIGITAL STRATEGY SPECIALIST: LIZA 01/06/19 1212 RPT#: [id number] DC DATE:01/05/19 STATUS: DIS IN [facility] [address] [place] [address] END OF REPORT
--- NOTE | 2019-01-09 17:33 | DS ---
PATIENT:CHICO FORD :[birth year] MEDICAL RECORD: [id number] DISCHARGE SUMMARY ADMISSION DATE: 01/04/19 DISCHARGE DATE: 01/05/19 PRINCIPAL DIAGNOSIS: Left-sided nephrolithiasis. PRINCIPAL PROCEDURE: Left nephrostomy tube placement. OTHER DIAGNOSES: Parkinson's disease, history of appendectomy, history of right knee surgery, history of left wrist surgery, history of C-sections times 3, history of tubal ligation. HOSPITAL COURSE: The patient was admitted. Underwent nephrostomy tube placement. She is being dismissed home on a narcotic analgesic as well as Colace, and in addition to this I am going to send her home with some Valium. We have set her up for a primary care physician as she has none. She is having a good bit of anxiety as her was killed in front of her and her children last month. I prescribed her some Valium until she can see her primary care physician. She is to follow up with Dr. Baker in 1 week. TRANSINT:[id number] Voice Confirmation ID: [id number] DOCUMENT ID: [id number] GURVINDER DILL MD at 1733 CC: [id number] DICTATION DATE: 01/05/19 1215 DIRECTOR REPORT: 01/06/19 0019 DIS IN 01/05/19 [place] [id number] [place] [address]
== END 2019-01-05 15:41 | disposition home or self-care (01) | DRG 700 ==
LOC: D.SP 07:55 → D.RAD 09:00 → D.SP 09:00 → D.MS 12:15 → OBSVTIME 12:33 → D.MS 16:00
PROVIDERS: General Practice; ADMIT Urology; ATTEND Urology
PROC: 0T9430Z Drainage of Left Kidney Pelvis with Drainage Device, Percutaneous Approach (ICD-10-PCS; principal; 2019-01-04 09:00)
DX: T83.84XA Pain due to genitourinary prosthetic devices, implants and grafts, initial encounter (principal); N20.0 Calculus of kidney

== ENCOUNTER 2019-01-16 07:17 | Inpatient (IN) | payer MEDICAID ==
[2019-01-15 12:28] LABS: HEMATOCRIT 35.4 % (36.0-48.0); HEMOGLOBIN 11.9 g/dL (12-16); MCH 28.1 pg (26.0-34.0); MCHC 33.6 g/dL (31.0-37.0); MCV 83.7 fL (80.0-100.0); RBC 4.23 10x6/uL (4.00-5.40); RDW 14.9 % (11.5-14.5); WBC 11.4 10x3/uL (4.8-10.8)
[2019-01-15 13:05] LABS: CALC OSMOLALITY 286 mosm/kg (275-300); CALCIUM 8.7 mg/dL (8.5-10.1); CARBON DIOXIDE 29.3 mmol/L (21.0-32.0); CHLORIDE - SERUM 106 mmol/L (98-107); CREATININE - SERUM 0.9 mg/dL (0.6-1.3); GLUCOSE 93 mg/dL (74-106); POTASSIUM - SERUM 4.2 mmol/L (3.5-5.1); SODIUM 144 mmol/L (136-145); UREA NITROGEN 13 mg/dL (7-18); eGFR NON AFRICAN AMERICAN 77 mL/min (90-120)
[2019-01-15 14:54] LABS: INR 0.97 (0.85-1.17); PROTIME 12.4 SECONDS (11.6-15.0)
[~2019-01-16] VITALS: Ht 160 cm; Wt 103.7 kg
--- NOTE | ~2019-01-16 | HEMODYNAMI ---
PATIENT:CHICO FORD MEDICAL RECORD: [id number] : 87 LOCATION:[facility] ADMISSION DATE: 01/16/19 Generatedon:01/16/20199:59 Patient name: CHICO FORD Patient #: [id number] SSN: DO B: 1985 Date of study: 01/16/2019 Page: Of Hemodynamic Procedure Report Patient Data Patient Demographics Procedure consent was obtained First Name: CHICO Gender: Female Last Name: LILIANA : 1985 Middle Initial: R Age: 33 year(s) Patient #: [id number] Race: Unknown Additional ID: [id number] Contact details [address]: [address] [place] [address] State: [place] City: [place] Zip code: [address] Past Medical History Allergies Allergen Reaction Date Comments Reported Aspirin 01/04/2019 Toradol 01/04/2019 Bactrim 01/04/2019 Other allergy 01/04/2019 tramadol, flomax,lates Aspirin 01/16/2019 Bactrim 01/16/2019 Toradol 01/16/2019 Other allergy 01/16/2019 tramadol, flomax, rhogam,latex Admission Admission Data Admission Date: 01/16/2019 Admission Time: 7:17 Procedure Procedure Types Cath Procedure Peripheral Cath Diagnostic Procedure Nephro Perc Neph Uret Cath Procedure Description Procedure Date Procedure Date: 01/16/2019 Procedure Start Time: 9:28 Procedure Staff Name Function Ed Hagan MD Performing Physician Katherine Horvath RT Monitor Bailee Irwin RN Nurse Louise Arreguin RN Nurse Taz Shine RT Scrub Procedure Data Cath Procedure Fluoroscopy Diagnostic fluoroscopy Total fluoroscopy Time: 10 time: 10 min min Diagnostic fluoroscopy Total fluoroscopy dose: 209 dose: 209 mGy mGy Contrast Material Contrast Material Type Amount (ml) Isovue 300 13 Procedure Medications Medication Administration Route Dosage unlisted medication I.V.P.B 1 g Versed I.V. 1 mg Fentanyl I.V. 50 mcg Versed I.V. 1 mg Fentanyl I.V. 50 mcg Versed I.V. 1 mg Fentanyl I.V. 50 mcg Heparin Flush Bag added to field 3 bags (1000units/500ml NS) Lidocaine 1% added to field 20 Versed I.V. 1 mg Fentanyl I.V. 50 mcg Hemodynamics Rest Heart Rate: 64 (bpm) Snapshots Pre Cath Intra NCS Post Cath Vital Signs Time Heart Resp SPO2 etCO2 NIBP (mmHg) Rhythm Pain Sedation Rate (ipm) (%) (mmHg) Status Level (bpm) 9:22:38 62 15 100 37.7 129/75(94) NSR 0 (11) 10(A) , No pain 9:26:50 64 16 100 37.7 131/79(108) NSR 0 (11) 10(A) , No pain 9:30:56 92 18 100 23.4 146/102(109) NSR 0 (11) 10(A) , No pain 9:35:12 69 15 100 26.4 137/82(104) NSR 0 (11) 8(A) , No pain 9:39:22 68 16 99 30.9 149/89(124) NSR 0 (11) 8(A) , No pain 9:43:36 80 14 98 40 146/97(126) NSR 0 (11) 8(A) , No pain 9:47:46 81 36 98 32.4 150/102(119) NSR 0 (11) 8(A) , No pain 9:52:45 79 26 98 43 Measuring NSR 0 (11) 8(A) , No pain 9:52:57 78 30 98 43 150/92(124) NSR 0 (11) 8(A) , No pain 9:57:15 69 16 98 41.5 138/83(121) NSR 0 (11) 8(A) , No pain Medications Time Medication Route Dose Verified Delivered Reason Notes Effec tiveness by by 9:14:04 Heparin Flush added 3 Ed Ward used for Bag to bags Danya Hagan MD procedure (1000units/500ml field KHOURY NS) 9:15:19 Lidocaine 1% added 20ml Ed Ward used for to vial Danya Hagan MD procedure field KHOURY 9:15:39 cefepime I.V.P.B 1 g Ed Gil used for Rodríguez Hagan RN procedure 9:31:36 Versed I.V. 1 mg Ed Bailee for Burda, Dc RN sedation 9:31:50 Fentanyl I.V. 50 Ed Bailee for mcg Burda, Dc RN sedation 9:33:46 Versed I.V. 1 mg Ed Bailee for Burda, Dc RN sedation 9:33:55 Fentanyl I.V. 50 Ed Bailee for mcg Burda, Dc RN sedation 9:36:29 Versed I.V. 1 mg Ed Bailee for Burda, Dc RN sedation 9:36:37 Fentanyl I.V. 50 Ed Bailee for mcg Burda, Dc RN sedation 9:40:25 Versed I.V. 1 mg Ed Bailee for Burda, Dc RN sedation 9:40:39 Fentanyl I.V. 50 Ed Bailee for mcg Burda, Dc RN sedation Procedure Log Time Note 9:04:10 Use device set IR Diagnostic 9:04:12 Tegaderm 4 x 4 ([id number]) opened to sterile field. 9:04:16 Sterile Angiographic Pack opened to sterile field. 9:04:19 Bag Decanter (2002S) opened to sterile field. 9:05:28 9:09:12 Time tracking: Regular hours (M-F 7:00 - 5:00) 9:09:20 Plan of Care:Hemodynamics will remain stable., Cardiac rhythm will remain stable., Comfort level will be maintained., Respiratory function will remain adequate., Patient/ family verbilizes understanding of procedure., Procedure tolerated without complication., Recovers from procedure without complications.. 9:09:28 Patient received from Outpatients to IR Alert and oriented. Tansferred to table in Prone position. 9:09:30 Correct patient and procedure confirmed by team. 9:09:33 Signed procedure consent form obtained from patient. 9:09:44 H&P Date Dictated: 01/16/2019 Within 30 days and on chart., H&P Addendum completed by physician on day of procedure. (MUST COMPLETE FOR ALL OUTPATIENTS). 9:09:46 Pre-procedure instructions explained to patient. 9:09:47 Pre-op teaching completed and patient verbalized understanding. 9:09:49 Family in waiting room. 9:09:51 Patient NPO since Midnight. 9:10:18 Patient allergic to Aspirin 9:10:24 Patient allergic to Bactrim 9:10:42 Patient allergic to Toradol 9:11:57 Patient allergic to Other allergytramadol, flomax, rhogam,latex 9:12:12 Is the patient allergic to Iodine/contrast media? No. 9:12:18 Is patient on blood thinner?No 9:12:32 GLIDE CATHETER 5FR ANGLED 65cm (CG507) opened to sterile field. 9:14:04 Heparin Flush Bag (1000units/500ml NS) 3 bags added to field was administered by Ed Hagan MD; used for procedure; 9:14:23 Patient diabetic? No. 9:14:29 9:14:30 ----Pre-sedation anethsthesia assessment.---- 9:14:33 Previous problem with sedation/anesthesia? No ? 9:14:37 Snore? No 9:14:39 Sleep apnea? No 9:14:42 Deviated septum? No 9:14:44 Opens mouth fully? Yes 9:14:46 Sticks out tongue? Yes 9:14:50 Airway obstruction? No ? 9:14:56 Dentures? No ? 9:14:59 9:15:19 Lidocaine 1% 20ml vial added to field was administered by Ed Hagan MD; used for procedure; 9:15:39 cefepime 1 g I.V.P.B was administered by Louise Arreguin RN; used for procedure; ::40 IV patent on arrival in right forearm with D5/.45%NaCl at KVO. :15:59 Left Renal was prepped with chlora-prep and draped in sterile fashion. 9:16:01 9:16:26 9:16:37 GLIDE WIRE Angled Super Stiff 180cm ([id number]) opened to sterile field. 9:21:25 9:21:38 ECG and BP/O2 sat monitors applied to patient. ::40 Vital chart was started 9::42 Full Disclosure recording started ::29 Baseline sample Acquired. 9:27:39 9:27:43 Physician arrived 9:28:08 --------ALL STOP TIME OUT------ ::09 Final Timeout: patient, procedure, and site verified with staff and physician. All members of the team are in agreement. 9:28:16 Fire Safety Assessment: A--An alcohol-based skin anteseptic being used preoperatively., C--Open oxygen or nitrous oxide is being used. 9:28:21 Procedure started. 9:28:37 Local anesthetic to Left Renal area with Lidocaine 1% by Ed Hagan MD.INITIAL ACCESS ONLY 9:31:36 Versed 1 mg I.V. was administered by Bailee Irwin RN; for sedation; 9:31:50 Fentanyl 50 mcg I.V. was administered by Bailee Irwin RN; for sedation; 9:33:46 Versed 1 mg I.V. was administered by Bailee Irwin RN; for sedation; 9:33:55 Fentanyl 50 mcg I.V. was administered by Bailee Irwin RN; for sedation; 9:36:16 BENTSON 145cm wire ([id number]) opened to sterile field. 9:36:29 Versed 1 mg I.V. was administered by Bailee Irwin RN; for sedation; 9:36:37 Fentanyl 50 mcg I.V. was administered by Bailee Irwin RN; for sedation; 9:40:25 Versed 1 mg I.V. was administered by Bailee Irwin RN; for sedation; 9:40:39 Fentanyl 50 mcg I.V. was administered by Bailee Irwin RN; for sedation; 9:42:30 GLIDE WIRE ANGLE 180cm ([id number]) opened to sterile field. 9:47:01 AMPLATZ Super stiff 180cm wire ([id number]) opened to sterile field. 9:47:27 Sheath 8fr. [place] 10cm opened to sterile field. 9:51:21 Procedure ended.(Physican Out) 9:51:49 Fluoroscopy time 10.00 minutes. 9:51:59 Fluoroscopy dose: 209 mGy 9:51:59 Flurop Dose total: 209 9:52:19 Contrast amount:Isovue 300 13ml. 9:53:12 Procedure and supply charges have been captured, reviewed, submitted and are correct. 9:53:28 Report given to Outpatients. 9:59:11 Vital chart was stopped Device Usage Item Name Manufacture Quantity Catalog Hospital Part Current Minimal Lot# / Number Charge Number Stock Stock Serial# Code Tegaderm 4 x 3M 1 1626W [id number] 5 4 (1626W) Sterile Cardinal 1 [id number] 186659 5 Angiographic Health Pack Bag Decanter Microtek 1 2001S [id number] 32468 [id number] 5 (2001S) Medical Inc. GLIDE Terumo 1 CG507 595210 294129 5 CATHETER 5FR ANGLED 65cm (CG507) GLIDE WIRE Terumo 1 [id number] 156788 228369 5 Angled Super Stiff 180cm (AH0079) [facility] 1 [id number] 498861 195179 5 145cm wire (Q70124) GLIDE WIRE Terumo 1 [id number] 525256 177259 669284 5 ANGLE 180cm (DE9760) AMPLATZ [place] 1 [id number] 204474 233892 193446 5 Super stiff Scientific 180cm wire ([id number]) Sheath 8fr. Terumo 1 [id number] 051300 [id number] 5 [place] 10cm Signature Audit Frazee Stage Time Signature Unsigned Intra-Procedure 01/16/2019 Katherine Horvath 9:59:07 AM RT(R) Signatures Monitor : Katherine Horvath RT Signature : Date : Time : [facility] [address] [place] [address]
[~2019-01-16 07:17] MED LIST changes: +COLACE100 MG PO; +HYDROCODON-ACE1 EAC7 PO; +VALIUM10 MG PO
[2019-01-16 08:51] VITALS: BP 107/70; BMI 39.9
--- NOTE | 2019-01-16 14:20 | NUR ---
REC'D TO ROOM 2233 FROM RECOVERY AWAKE AND ALERT EASILY TO AROUSED WHEN NAME IS CALLED. RESP EVEN AND UNLABORED WITH NO DISTRESS NOTED. NEPHROSTOMY TUBE NOTED TO LEFT MIDDLE BACK. C/O PAIN RATING 8/10 ON PAIN SCALE WAS MEDICATED IN RECOVERY WITH 2 MG OF DILUADID. ASSESSMENT COMPLETED. C/L IN REACH AT BEDSIDE.
[2019-01-16 14:23] VITALS: BP 131/78
[2019-01-16 15:00] VITALS: BP 109/59; BMI 39.9
--- NOTE | 2019-01-16 19:10 | NUR ---
CALLED TO ROOM PT CRYING STATES HURTING SO BAD PILL WILL NOT WORK THAT TOOK EARLIER, APPEARS VERY ANXIOUS WITH SHALLOW RAPID RESP, ENCOURAGED TO SLOW BREATHING TALKED WITH HER UNTILL CALMER, STATES FEEL LIKE NEEDS TO URINATE BUT TRIED EARLIER ON BEDPAN AND UNABLE, HAS LEFT NEPHRESTOMY TUBE IN PLACE WITH BLOODY DRAINAGE NOTED, INSTRUCTED WOULD CHECK WITH
--- NOTE | 2019-01-16 20:00 | NUR ---
DR RAVI CALLED REGARDING PT'S PAIN AND UNABLE TO VOID ON BED PAIN, STATES CAN DO BLADDER SCAN IF GREATER THAN [address] [place], MAY GET UP TO BATHROOM , AND TO GO AHEAD AND GIVE MORPHINE ORDERDED NOW, MORPHINE GIVEN AND INSTRUCTED TO CALL FOR ASSISTANCE BEFOR GETTING UP
--- NOTE | 2019-01-16 21:00 | NUR ---
UP TO BATHROOM VOIDED WITH OUT DIFFICULTY, USHA COLORED URINE
[2019-01-16 21:20] VITALS: BP 126/75
[2019-01-17 01:23] VITALS: BP 107/67
[2019-01-17 05:18] VITALS: BP 105/57
--- NOTE | 2019-01-17 07:15 | NUR ---
ALERT AND ORIENTED, RESTING IN BED. NO C/O PAIN. NO S/S OF ACUTE DISTRESS NOTED. UP WITH ASSIST. IV TO LEFT FOREARM, SL. SITE PATENT WITHOUT REDNESS OR SWELLING. NEPHROSTOMY TUBE TO LEFT UPPER BACK, BLOODY DRAINAGE. DRESSING SATURATED, CHANGED DRESSING WITH GAUZE AND TAPE TO REINFORCE. PT DENIES ANY NEEDS AT THIS TIME. CALL LIGHT IN REACH. WILL CONTINUE TO MONITOR.
[2019-01-17 09:22] VITALS: BP 115/78
--- NOTE | 2019-01-17 09:48 | OP ---
PATIENT NAME: CHICO FORD MEDICAL RECORD: [id number] :87 LOCATION:D.MS [id number] ADMISSION DATE:01/16/19 SURGEON: GURVINDER RAVI MD DATE OF OPERATION: 01/16/2019 SURGEON: Gurvinder Ravi MD ANESTHESIA: General anesthesia by Bjorn Lee CRNA. DIAGNOSIS: Left renal stone, 11 mm obstructing the left UP junction. PROCEDURE: Left percutaneous nephrolithotomy (PCNL). FINDINGS: Radiolucent stone at the left UP junction. SPECIMENS: Left renal stone. ESTIMATED BLOOD LOSS: Minimal. CLINICAL HISTORY: This is a 33-year-old female who presented with a left renal pelvis stone, 11 mm in size, lodged in the UP junction. She was referred to interventional radiology for an attempted nephrostomy tube drainage. They had trouble getting a wire past the stone. Finally, tried again and they managed to get a nephrostomy in to drain the left kidney. She comes today to have the stone removed via percutaneous nephrolithotomy. SHE IS ALLERGIC TO MULTIPLE MEDICATIONS INCLUDING ASPIRIN, BACTRIM, FLOMAX, TORADOL, TRAMADOL, LATEX, MACROBID and RHOGAM. She was given Ancef air pollution engineer to the OR. Earlier today, she had a nephroureteral access placed through the nephrostomy tube. Now I am going to be accessing the nephroureteral access. DESCRIPTION OF PROCEDURE: The patient was given induction of general anesthesia in supine position on the stretcher. She had her legs put in frog-leg position and she was then prepped and draped. Cystoscopy was performed. The distal end of the nephroureteral catheter was seen in the bladder. Grasping forceps were placed on the distal end and the catheter was pulled out through the urethra. This will allow us to put a hemostat on the nephroureteral access wire that we put down through the lumen of this catheter. This will prevent loss of our access tract. A Ortiz catheter was put into the bladder and put to bag drainage. The patient was then turned into prone position on the Jimbo frame. She was prepped and draped. Fluoroscopy revealed no visible radiodense stones. An Amplatz Super Stiff wire was placed down through the lumen of the nephroureteral catheter and the distal end of the wire was clamped with a hemostat to prevent backwards migration. The nephroureteral access catheter was then removed entirely. A #10 knife blade was used on either side of the wire for skin incision. A dual-lumen catheter was inserted over the wire and placed with the tip in the proximal ureter. Through the second lumen, we placed a Sensor wire down into the bladder. The sensor wire acts as a safety wire. We then removed the dual-lumen catheter, leaving the [address] The safety wire was clamped to the drapes. We worked over the Amplatz Super Stiff wire. A NephroMax dilation balloon was then used to dilate the tract. A 30-Congolese working sheath was placed over the inflated balloon. The balloon was then deflated and removed entirely. The nephroscope identified the stone at the UP junction. There was one 5-mm fragment that was actually lodged in the UP OPERATIVE REPORT [id number] LILIANA,RAMANDA R junction. A Helioz R&D [id number] basket was placed around the stone. It was removed. Within the renal pelvis, the rest of the stone was seen. It is quite long. I had to use the [employer] LithoClast ultrasonic modality to break up the stone into smaller fragments. The smaller fragments were then removed using grasping forceps. Finally, the ultrasonic modality was used to clean up any little dust particles of stone remaining in the renal pelvis. No further stone could be seen within the renal pelvis. The scope was then removed. A 24-Congolese Malecot nephrostomy tube was then inserted into the renal pelvis. Once the nephrostomy tube was in correct position, the guide wires were completely removed. The working sheath was completely removed. The nephrostomy tube was sutured to the skin using 2-0 nylon. Dressings were applied and the nephrostomy tube was put to bag drainage. The Ortiz catheter was removed. The patient was awakened and brought to the recovery room. TRANSINT:[id number] Voice Confirmation ID: [id number] DOCUMENT ID: [id number] GURVINDER RAVI MD at 0948 CC: [id number] DICTATION DATE: 01/16/19 1301 ACCOUNT FINANCIAL MANAGER: 01/16/191950 ADM IN [facility] [address] [place] [address]
[2019-01-17 14:12] VITALS: BP 112/73
[2019-01-17 16:09] VITALS: BP 96/41
--- NOTE | 2019-01-17 19:24 | NUR ---
ALERT AND ORIENTED, SITTING IN BED. NO C/O PAIN. NO S/S OF ACUTE DISTRESS NOTED. CALL LIGHT IN REACH. DENIES ANY NEEDS AT THIS TIME.
[2019-01-17 20:55] VITALS: BP 126/69
[2019-01-18] VITALS (9 sets, daily range): BP systolic 93–171; BP diastolic 45–86
--- NOTE | 2019-01-18 03:00 | NUR ---
ANAMARIA IN BED WITH C/O PAIN 9 10 GIVEN DILAUDID PER ORDERS AT 2019 THAT DID NOT SAVE IN COMPUTER, EFFICT AT 08/16.
--- NOTE | 2019-01-18 04:01 | NUR ---
PT GOING OUT TO SMOKE ENCOURAGED TO STAY ON FLOOR, EDUCATED AT RISK FOR FALL WITH RESENT PAIN MED GIVEN REPLIED I HAVE BEEN DOING IT ALL DAY I WILL BED FINE I AM JUST GOING OUT ER, PT. OFF FLOOR IN W/C.
--- NOTE | 2019-01-18 10:45 | NUR ---
PT C/O SHIVERING AND BEING COLD. AEROSPACE PROJECT MANAGER TOOK PT'S TEMP ORALLY, 101.4. PT STATED "I DON'T FEEL GOOD AT ALL." PAGED DR. RAVI.
--- NOTE | 2019-01-18 11:30 | NUR ---
dr carlos notifed of temp of 102.0-recheck x 3-orders noted and ua/cult obtained from nephostromy tube. blankets removed from pt-had [address] incentive spirometry at bedside and used. pt states she has been coughing
--- NOTE | 2019-01-18 11:30 | NUR ---
DR. RAVI ENTERED PT ROOM. PHYSICIAN AWARE OF PT CONDITION. PHYSICIAN REMOVED NEPHROSTOMY TUBE FOR LEFT UPPER BACK. DRESSING APPLIED TO SITE.
--- NOTE | 2019-01-18 12:05 | NUR ---
temp 102.1 temporal. lab here for blood cultures being drawn. dr carlos paged in surgery and informed-orders recieved and did not want antibiotics at this time.
[2019-01-18 15:43] LABS: CALC OSMOLALITY 277 mosm/kg (275-300); CALCIUM 7.8 mg/dL (8.5-10.1); CARBON DIOXIDE 29.4 mmol/L (21.0-32.0); CHLORIDE - SERUM 104 mmol/L (98-107); CREATININE - SERUM 0.9 mg/dL (0.6-1.3); POTASSIUM - SERUM 3.3 mmol/L (3.5-5.1); SODIUM 141 mmol/L (136-145); UREA NITROGEN 11 mg/dL (7-18); eGFR NON AFRICAN AMERICAN 77 mL/min (90-120)
[2019-01-18 15:45] LABS: GLUCOSE 70 mg/dL (74-106)
[2019-01-18 15:46] LABS: BASOPHILS 0.1 % (0-2); EOSINOPHILS 0.2 % (0-7); HEMOGLOBIN 10.6 g/dL (12-16); IMMATURE GRANULOCYTES 0.4 % (0-5); LYMPHOCYTES 10.3 % (15-50); MCH 27.5 pg (26.0-34.0); MCHC 33.1 g/dL (31.0-37.0); MCV 83.1 fL (80.0-100.0); MONOCYTES 9.6 % (2-11); NEUTROPHILS 79.4 % (40-80); RBC 3.85 10x6/uL (4.00-5.40); RDW 15.1 % (11.5-14.5); WBC 17.4 10x3/uL (4.8-10.8)
[2019-01-18 15:47] LABS: PLATELET COUNT 170 10x3/uL (130-400)
--- NOTE | 2019-01-18 17:00 | NUR ---
PT FEVER AT 102.8, CALLED DR. RAVI. PHYSICIAN ORDERED ONE DOSE TYLENOL #3 FOR FEVER AND TO CONSULT DR. DOUGHERTY. PAGED DR. DOUGHERTY.
--- NOTE | 2019-01-18 18:45 | NUR ---
CALLED RAPID RESPONSE PER DR. RAVI. PT FEVER SPIKED TO 103.1 AND HEARTRATE IN THE 130'S. PT ALERT AND ORIENTED. PLACED ICE PACKS IN BENDS OF ARMS, LEGS, NECK AND CHEST. PT GOING TO ICU WHEN ICU DEPT READY FOR TRANSPORT. CALLED REPORT INTO [facility].
--- NOTE | 2019-01-18 19:54 | NUR ---
PT RECIEVED FROM FLOOR, REPORT RECIEVED. TEMP ON ARRIVAL 102.1 ORALLY, ICE PACKS APPLIED AXILLARY AND GROIN. PT HAS 22G IV IN RIGHT WRIST INFUSING, FACE APPEARS FLUSHED AND IS GROANING OCCASIONALLY. ASSESSMENT COMPLETED, SEE FLOWSHEET. DRESSING ON LEFT LOWER BACK, MODERATE DRAINAGE NOTED. WILL CONTINUE TO MONITOR.
--- NOTE | 2019-01-18 20:35 | NUR ---
IV INITIATED IN LEFT AC 20G TO SL.
[2019-01-18 20:47] LABS: APTT 29.7 SECONDS (22.8-39.4); INR 1.15 (0.85-1.17); PROTIME 14.2 SECONDS (11.6-15.0)
--- NOTE | 2019-01-18 21:37 | NUR ---
PT REPORTS HEADACHE AND PAIN IN BACK WELL THE LOWER AND UPPER LEFT ABDOMEN. PAIN IN ABDOMEN ON PALPATION 01/16. TEMP 102.7, TYLENOL GIVEN AND ICE PACKS APPLIED TO GROIN AND AXILARRY.
--- NOTE | 2019-01-18 23:00 | NUR ---
PT RESTING IN BED, FACE REMAINS FLUSHED IN FACE, SKIN WARM TO THE TOUCH. TEMP DOWN TO 102.5 WITH ICE PACKS AND PO TYLENOL. WILL CONTINUE TO MONITOR.
[2019-01-19] VITALS (24 sets, daily range): BP systolic 91–164; BP diastolic 51–79; Ht 160 cm; Wt 103.7 kg
--- NOTE | 2019-01-19 01:04 | NUR ---
PT RESTING IN BED, AAOX4, STATES SHE IS DOING "BETTER," TEMP IS LOWERING WITH ICE PACKS AND TYLENOL PO. WILL CONTINUE PLAN OF CARE.
--- NOTE | 2019-01-19 03:59 | NUR ---
PT AAOX4, RESTING IN BED. PAIN PERSISTS, TEMP FLUCTUATING. WILL CONTINUE PLAN OF CARE.
--- NOTE | 2019-01-19 05:00 | NUR ---
PT TEMP RISING, C/O "SHARP PAIN IN TEMPLES" ALONGSIDE HEADACHE. IMPROVES WITH MEDICATION. WILL CONTINUE TO MONITOR.
[2019-01-19 05:18] LABS: APTT 36.7 SECONDS (22.8-39.4); INR 1.26 (0.85-1.17); PROTIME 15.3 SECONDS (11.6-15.0)
[2019-01-19 05:23] LABS: HEMATOCRIT 29.2 % (36.0-48.0); HEMOGLOBIN 9.2 g/dL (12-16); MCH 28.3 pg (26.0-34.0); MCHC 31.5 g/dL (31.0-37.0); MEAN PLATELET VOLUME 9.7 fL (7.4-10.4); RBC 3.25 10x6/uL (4.00-5.40); RDW 14.9 % (11.5-14.5); WBC 19.7 10x3/uL (4.8-10.8)
[2019-01-19 05:24] LABS: MCV 89.8 fL (80.0-100.0)
--- NOTE | 2019-01-19 06:19 | NUR ---
DR RAVI PAGED REGARDING ORDERS FOR LOW POTASSIUM. AWAITING CALL BACK.
--- NOTE | 2019-01-19 06:26 | NUR ---
ORDERS RECIEVED FROM DR RAVI, UPDATED ON PT STATUS
--- NOTE | 2019-01-19 10:49 | NUR ---
PT C/O PAIN TO FLANK AREA. DILAUDID GIVEN. PT VERB ADEQUATE R/P PAIN WITH MEDS. DSNG CHANGED TO NEPHROSTOMY TUBE EXIT SITE. DSNG SATURATED. DR DOUGHERTY HERE ON ROUNDS THIS AM.
--- NOTE | 2019-01-19 11:42 | MORECARE ---
CASE MANAGEMENT DISCHARGE SUMMARY PATIENT: CHICO FORD R UNIT: [id number] ADM DATE: 01/16/19 AGE: 33 : [birth year] SEX: F ROOM/BED: D.2303 AUTHOR: HUMZA BARTLETT PHYSICIAN: REFERRING PHYSICIAN: GURVINDER RAVI MD DATE OF SERVICE: 01/19/19 Discharge Plan Patient Name: CHICO FORD Facility: [facility]:[place] : 1985 Planned Disposition: Home Anticipated Discharge Date: Discharge Date: Expected LOS: Initial Reviewer: [email or web address] Initial Review Date: 01/19/2019 Generated: 01/19/19 12:42 pm DCPIA - Discharge Planning Initial Assessment Updated by [email or web address]: Aruna Taylor on 01/19/19 11:41 am * Is the patient Alert and Oriented? Yes * PCP [facility] * [facility] * Preadmission Environment Home with Family * ADLs Independent * Equipment None * List name and contact numbers for known caregivers / representatives who currently or will assist patient after discharge: ALANNA Curiel [facility] [phone] * Verbal permission to speak to the caregivers and representatives has been obtained from the patient. N/A * Community resources currently utilized None * Additional services required to return to the preadmission environment? No * Can the patient safely return to the preadmission environment? Yes * Has this patient been hospitalized within the prior 30 days at any hospital? Yes Patient Name: CHICO FORD Page 75353 at 1142 All edits/amendments must be made on the electronic document DICTATION DATE: 01/19/19 1142 CONVEYANCER: LIZA 01/19/19 1142 RPT#: [id number] DC DATE: STATUS: ADM IN [facility] [address] [place] [address] END OF REPORT
--- NOTE | 2019-01-19 12:00 | MORECARE ---
CASE MANAGEMENT DISCHARGE SUMMARY PATIENT: CHICO FORD UNIT: [id number] ADM DATE: 01/16/19 AGE: 33 : [birth year] SEX: F ROOM/BED: D.2303 AUTHOR: TRIDOC PHYSICIAN: REFERRING PHYSICIAN: GURVINDER RAVI MD DATE OF SERVICE: 01/19/19 Discharge Plan Patient Name: CHICO FORD Facility: [facility]:[place] : 1985 Planned Disposition: Home Anticipated Discharge Date: Discharge Date: Expected LOS: Initial Reviewer: [email or web address] Initial Review Date: 01/19/2019 Generated: 01/19/19 1:00 pm Comments DCP- Discharge Planning Updated by [email or web address]: Aruna Taylor on 01/19/19 10:[address] Patient Name: CHICO FORD Admission Status: Elective Accout number: [id number] Admission Date: 01-16-2019 : 1985 Admission Diagnosis:CALCULUS OF KIDNEY Attending: VIDA RAVI Current LOS: 3 Anticipated DC Date: Planned Disposition: Home Primary Insurance: [place] [employer] MARIANO Discharge Planning Comments: CM met with patient to complete initial dc planning assessment. CM educated patient on the CM role and verbal consent given by patient to complete assessment. Patient lives at home with her mother & her children where she is independent with her care. At discharge patient plans to return home and feels this is a safe discharge. CM discussed availability of home health, rehab services, and medical equipment. Patient denied known discharge needs at this time. CM will continue to follow and will assist as needed with dc plans/needs. Supervisor Lime: Aruna Taylor DCPIA - Discharge Planning Initial Assessment Updated by [email or web address]: Aruna Taylor on 01/19/19 11:41 am * Is the patient Alert and Oriented? Yes * PCP [facility] * [facility] * Preadmission Environment Home with Family * ADLs Independent * Equipment None * List name and contact numbers for known caregivers / representatives who currently or will assist patient after discharge: ALANNA HUNTER - MOTHER - [phone] * Verbal permission to speak to the caregivers and representatives has been obtained from the patient. N/A * Community resources currently utilized None * Additional services required to return to the preadmission environment? No * Can the patient safely return to the preadmission environment? Yes * Has this patient been hospitalized within the prior 30 days at any hospital? Yes Last DP export: 01/19/19 10:42 a Patient Name: CHICO FORD Page 02325 at 1200 All edits/amendments must be made on the electronic document DICTATION DATE: 01/19/19 1200 TROLLEY WIRE INSTALLER: LIZA 01/19/19 1200 RPT#: [id number] DC DATE: STATUS: ADM IN [facility] [address] [place] [address] END OF REPORT
--- NOTE | 2019-01-19 12:01 | NUR ---
PT SITTING UP IN BED EATING LUNCH. GAVE DILAUDID FOR PAIN IN LOWER BACK. WILL CONTINUE TO MONITOR.
--- NOTE | 2019-01-19 14:30 | NUR ---
POTASSIUM RECHECKED AND 3.3. WILL REPLACE.
--- NOTE | 2019-01-19 15:07 | NUR ---
DRESSING TO LOWER BACK CHANGED. DRAINING SEROUS FLUID. PT UP TO BSC. VOIDED. VSS.
--- NOTE | 2019-01-19 16:23 | NUR ---
PT COMPLAINS OF HEADACHE. NORCO-10 GIVEN. WILL CONTINUE TO MONITOR.
--- NOTE | 2019-01-19 18:48 | NUR ---
DRESSING TO LEFT LOWER BACK CHANGED. DRAINAGE WAS SEROUS. PT TOLERATED WELL.
--- NOTE | 2019-01-19 19:45 | NUR ---
REPORT RECEIVED PT ALERT AND ORIENTED. CM ALARMS ON AND AUDIBLE SR-ST. LEFT LOWER BACK DRESSING CLEAN DRY AND INTACT. RESP EVEN AND NONLABORED ON ROOM AIR CHEST CLEAR. PT STATES SHE JUST NEEDS HER PAIN MEDICATIONS OFTEN DENIES NEEDS AT THIS TIME VSS CALL LIGHT IN REACH
[2019-01-19] MEDS ORDERED: GABAPENTIN100 MG PO (20:10)
--- NOTE | 2019-01-19 21:00 | NUR ---
VISITOR AT BEDSIDE SPEAKING WITH PATIENT
--- NOTE | 2019-01-19 23:00 | NUR ---
REASSESSMENT MADE NO CHANGES SEE PRN EMAR PAIN MEDS. VSS NO DISTRESS NOTED CPOC
[2019-01-20] VITALS (17 sets, daily range): BP systolic 101–132; BP diastolic 50–76
--- NOTE | 2019-01-20 01:00 | NUR ---
VSS NO DISTRESS
--- NOTE | 2019-01-20 03:00 | NUR ---
REASSESSMENT MADE NO CHANGES SEE ASSESSMENT FLOWSHEET. PT MEDICATED FOR PAIN PER PRN EMAR
--- NOTE | 2019-01-20 06:45 | NUR ---
PULLED HYDROMORPHONE INSTEAD OF HYDROCODONE, WASTED FULL 2 MG OF THE DILAUDID. GIVEN THE HYDROCODONE ORAL FOR PAIN 7 ON 1-10 SCALE
--- NOTE | 2019-01-20 07:00 | NUR ---
AWAKE AND ALERT SKIN WARM AN DRY. NO DISTRESS NOTED. HEAD OF BED ELEVATED 45 DEGREES. LEFT BACK DRESSING SATURATED BUT INTACT. STATES PAIN AT 9 .IV RIGHT WRIST WITHOUT REDNESS OR SWELLING INFUSING WITH D51/2NS AT 70 ML HOUR.
--- NOTE | 2019-01-20 07:30 | NUR ---
VISITORS HERE. PAIN MEDS GIVEN IV REQUESTED BY PATIENT FOR CONTINUED PAIN LEFT BACK. DRESSING REMOVED. SITE WITHOUT REDNESS OR SWELLING. NO DRAINAGE COMING FROM SITE. DRESSING SATURATED WITH LIQUID. STERILE 4X4 APPLIED WITH COVERDERM DRESSING APPLIED PATIENT TOLERATED WELL.
--- NOTE | 2019-01-20 08:00 | NUR ---
BREAKFAST SERVED. ADDITIONAL SUGAR PROVIDED. CALLED DIETARY FOR DR. LATHAM X 2.
--- NOTE | 2019-01-20 08:37 | NUR ---
LAYING IN BED EATING BREAKFAST. NO DISTRESS. PAIN IMPROVED
--- NOTE | 2019-01-20 09:00 | NUR ---
ATE GOOD BREAKFAST. NO DISTRESS.
--- NOTE | 2019-01-20 10:24 | NUR ---
SLEEPING ON LEFT SIDE. NO DISTRESS. RESP DEEP AND REGULAR.
--- NOTE | 2019-01-20 12:00 | NUR ---
LUNCH SERVED ATE FAIR. NO DISTRESS. UP AND DOWN TO BSC NEEDED. OFFERED A BATH WHEN SHE IS READY.
--- NOTE | 2019-01-20 13:45 | NUR ---
DR. RAVI HERE ORDERS RECEIVED TO TRANSFER TO FLOOR. ANY FLOOR IS OK. PATIENT VOICE NEED TO WEEN SELF OFF IV PAIN MEDS. TALKATIVE. FAMILY HERE VISITING.
--- NOTE | 2019-01-20 14:50 | NUR ---
DRESSING ON BACK DRY AND INTACT. IV PATENT INFUSING WITH D51/2NS AT 70 ML HOUR. UP TO BSC MOD SIZE FIRM BM BROWN IN COLOR. NO DISTRESS. REPORT CALLED TO PETER TO TRANFER TO ROOM 2207 PER WHEELCHAIR.
--- NOTE | 2019-01-20 15:12 | NUR ---
RECEIVED TO ROOM 2207 VIA WC FROM ICU. ALERT AND ORIENTED X3. NO C/O AT THIS TIME. SKIN IS INTACT WITHOUT REDNESS EXCEPT OLD INSERTION SITE TO LEFT SIDE OF BACK. DENIES NEEDS.
--- NOTE | 2019-01-20 16:29 | NUR ---
WAS OFF UNIT TO L&D TO VISIT SISTER. REQUESTED AND GIVEN ONE HYDROCODONE PO FOR C/O BACK PAIN LEVEL 8. WILL MONITOR.
--- NOTE | 2019-01-20 18:00 | NUR ---
SITTING UP ON SIDE OF BED EATING SUPPER. REQUESTED AND GIVEN MORE DUMPLINGS. NO C/O AT THIS TIME. DENIES NEEDS. NO CHANGES NOTED.
--- NOTE | 2019-01-20 18:30 | NUR ---
PATIENT REFUSED SCD'S. I'M UP ALL THE TIME.
--- NOTE | 2019-01-20 19:15 | NUR ---
PATIENT ALERT AND ORIENTED. COMES TO NURSES STATION STATES SHE IS GOING ON A WALK AND ASKS TO BE UNHOOKED FROM IV POLE. PATIENT ALLOWS THIS NURSE TO ASSESS BEFORE LEAVING THE FLOOR. LUNGS CLEAR TO AUSCULTATION. COMPLAINTS OF PAIN TO THE LOWER LEFT FLANK AREA. DRESSING TO AREA FROM PREVIOUS NEPHROSTOMY TUBE REMOVAL. DRESSING CLEAN AND NO DRAINAGE NOTED. PATIENT DENIES PAIN MEDICINE AT THIS TIME. RIGHT FOREARM IV IS PATENT. PATIENT DENIES SCD'S AT THIS TIME. DENIES FURTHER ISSUES. CPOC.
[2019-01-21] VITALS: BP 131/77
--- NOTE | 2019-01-21 03:42 | NUR ---
I have reviewed this patient and I concur with the Shift Assessment completed by the Licensed Practical Nurse today this shift.
[2019-01-21 04:00] VITALS: BP 131/73
--- NOTE | 2019-01-21 08:10 | NUR ---
AWAKE AND ALERT. ORIENTED X3. UP TO BR PER SELF. HAD LARGE FORMED MEDIUM BROWN STOOL. MANOLO CARE PER SELF. LUNGS ARE CLEAR BILATERALLY, NO COUGH NOTED. SKIN IS INTACT WITHOUT REDNESS EXCEPT INSERTION SITE TO RIGHT BACK, WHICH HAS A DRY INTACT DRESSING IN PLACE. IV TO RIGHT FOREARM IS PATENT WTIHOUT REDNESS AT INSERTION SITE. DENIES NEEDS. FAMILY AT BEDSIDE.
--- NOTE | 2019-01-21 08:53 | NUR ---
REQUESTED AND GIVNE ONE HYDROCODONE PO FOR C/O BACK PAIN LEVEL 8. WILL MONITOR.
--- NOTE | 2019-01-21 11:03 | NUR ---
ATE MOST OF BREAKFAST. SON AT [facility]. DENIES NEEDS.
--- NOTE | 2019-01-21 12:50 | NUR ---
REQUESTED AND GIVNE ONE HYDDROCODONE PO FOR C/O BACK PAIN LEVEL 8. WILL MONITOR.
--- NOTE | 2019-01-21 17:50 | NUR ---
IV TO RIGHT WIRST REDDENED. D/C WITH CATHETER INTACT. RESITED TO RIGHT FOREARM AFTER 2 ATTEPTS WITH 22G. REQUESTED AND GIVEN 2MG DILAUDID SLOW IVP FOR C/O BACK PAIN LEVEL 10. DR. RAVI WAS HERE AND GAVE PERMISSION FOR SAME. FAMILY IN ROOM. ATE ALMOST ALL OF SUPPER. DENIES NEEDS. NO CHANGES NOTED.
[2019-01-21 20:03] VITALS: BP 135/72
[2019-01-22] VITALS: BP 108/65
[2019-01-22 04:00] VITALS: BP 134/78
--- NOTE | 2019-01-22 07:30 | NUR ---
PATIENT READY FOR DC AND ASKED FOR IV PAIN MEDICATION, ADVISED PT UNABLE TO GIVE IV PAIN MEDS AND WILL DO PO AND GIVE PT DC PAPERS NO OTHER NEEDS VOICED, MITCHELL MCDONALD
[2019-01-22 07:59] VITALS: BP 118/71
[2019-01-23 13:10] LABS: CALCULI - CA OXALATE DIHYDRATE 30 % (()); CALCULI - CA OXALATE MONOHYDR 50 % (()); CALCULI - CALCIUM PHOSPHATE 20 % (()); CALCULI - COLOR Tan (()); CALCULI - COMMENT Note: (())
--- NOTE | 2019-01-23 14:19 | MORECARE ---
CASE MANAGEMENT DISCHARGE SUMMARY PATIENT: CHICO FORD UNIT: [id number] ADM DATE: 01/16/19 AGE: 33 : [birth year] SEX: F ROOM/BED: D.2207 AUTHOR: HUMZA BARTLETT PHYSICIAN: REFERRING PHYSICIAN: GURVINDER RAVI MD DATE OF SERVICE: 01/23/19 Discharge Plan Patient Name: CHICO FORD Facility: [facility]:[place] : 1985 Planned Disposition: Home Anticipated Discharge Date: Discharge Date: 01/22/2019 Expected LOS: 0 Initial Reviewer: [email or web address] Initial Review Date: 01/19/2019 Generated: 01/23/19 3:18 pm Comments DCP- Discharge Planning Updated by [email or web address]: Aruna Taylor on 01/19/19 10:[address] Patient Name: CHICO FORD Admission Status: Elective Accout number: [id number] Admission Date: 01-16-2019 : 1985 Admission Diagnosis:CALCULUS OF KIDNEY Attending: VIDA RAVI Current LOS: 3 Anticipated DC Date: Planned Disposition: Home Primary Insurance: [place] [employer] MAR[place] Discharge Planning Comments: CM met with patient to complete initial dc planning assessment. CM educated patient on the CM role and verbal consent given by patient to complete assessment. Patient lives at home with her mother & her children where she is independent with her care. At discharge patient plans to return home and feels this is a safe discharge. CM discussed availability of home health, rehab services, and medical equipment. Patient denied known discharge needs at this time. CM will continue to follow and will assist as needed with dc plans/needs. Relay Assembler: Aruna Taylor DCPIA - Discharge Planning Initial Assessment Updated by [email or web address]: Aruna Taylor on 01/19/19 11:41 am * Is the patient Alert and Oriented? Yes * PCP [facility] * [facility] * Preadmission Environment Home with Family * ADLs Independent * Equipment None * List name and contact numbers for known caregivers / representatives who currently or will assist patient after discharge: ALANNA HUNTER - MOTHER - [phone] * Verbal permission to speak to the caregivers and representatives has been obtained from the patient. N/A * Community resources currently utilized None * Additional services required to return to the preadmission environment? No * Can the patient safely return to the preadmission environment? Yes * Has this patient been hospitalized within the prior 30 days at any hospital? Yes Last DP export: 01/19/19 11:00 a Patient Name: CHICO FORD Page 72368 at 1419 All edits/amendments must be made on the electronic document DICTATION DATE: 01/23/191417 DIRECTOR OF PARTNERSHIPS: LIZA 01/23/191417 RPT#: [id number] DC DATE:01/22/19 STATUS: DIS IN [facility] [address] [place] [address] END OF REPORT
== END 2019-01-22 10:09 | disposition home or self-care (01) | DRG 659 ==
LOC: D.OPS 07:17 → D.PAN 11:15 → D.OPS 11:15 → D.MS 13:12 → D.OPS 13:57 → D.MS 14:47 → D.ICU 01-18 20:05 → D.MS 01-20 15:02
PROVIDERS: Anesthesiology; General Practice; ADMIT Urology; ATTEND Urology
PROC: 0TC13ZZ Extirpation of Matter from Left Kidney, Percutaneous Approach (ICD-10-PCS; principal; 2019-01-16 09:00)
DX: N20.0 Calculus of kidney (principal); A41.9 Sepsis, unspecified organism; N12 Tubulo-interstitial nephritis, not specified as acute or chronic; Z68.41 Body mass index [BMI] 40.0-44.9, adult; J98.11 Atelectasis; N39.0 Urinary tract infection, site not specified; F17.200 Nicotine dependence, unspecified, uncomplicated; E87.6 Hypokalemia; E66.01 Morbid (severe) obesity due to excess calories

== ENCOUNTER → 2019-02-07 18:29 | Outpatient (CLI) | payer MEDICAID ==
[2019-01-19 10:04] VITALS: BMI 40.4
[~2019-02-07 18:29] MED LIST changes: +GABAPENTIN100 MG PO
== END | disposition home or self-care (01) ==
LOC: D.LABREF 18:29
PROVIDERS: ATTEND Urology
DX: R31.9 Hematuria, unspecified (principal)

== ENCOUNTER → 2019-02-21 18:44 | Outpatient (CLI) | payer MEDICAID ==
[2019-01-19 10:04] VITALS: BMI 40.4
== END | disposition home or self-care (01) ==
LOC: D.LABREF 18:44
PROVIDERS: ATTEND Urology
DX: R31.9 Hematuria, unspecified (principal)

== ENCOUNTER → 2019-02-23 08:02 | Outpatient (CLI) | payer MEDICAID ==
[2019-01-19 10:04] VITALS: BMI 40.4
== END | disposition home or self-care (01) ==
LOC: D.CT 08:02
PROVIDERS: ATTEND Urology
DX: N20.0 Calculus of kidney (principal)

== ENCOUNTER 2019-05-05 21:48 | Emergency (ER) | payer MEDICAID ==
[~2019-05-05] VITALS: Ht 160 cm; Wt 94.5 kg
[2019-05-05 22:03] VITALS: Ht 160 cm; Wt 94.5 kg
[2019-05-05] MEDS ORDERED: UNK ANTIDEPRESSANT (22:07)
[2019-05-05 22:24] LABS: APPEARANCE HAZY (CLEAR); BACTERIA MANY /hpf (NEGATIVE); BILIRUBIN NEGATIVE (NEGATIVE); COLOR YELLOW (YELLOW); EPITHELIAL CELLS 25-50 /hpf (0-5); GLUCOSE NEGATIVE (NEGATIVE); HCG URINE NEGATIVE (NEGATIVE); KETONE NEGATIVE (NEGATIVE); MUCUS >1+ /lpf (NONE SEEN); NITRITE NEGATIVE (NEGATIVE); PROTEIN NEGATIVE (NEGATIVE); SPECIFIC GRAVITY 1.025 (1.005-1.020); UROBILINOGEN NORMAL (NORMAL)
[2019-05-05 22:48] LABS: BASOPHILS 0.2 % (0-2); EOSINOPHILS 1.8 % (0-7); HEMATOCRIT 38.9 % (36.0-48.0); IMMATURE GRANULOCYTES 0.1 % (0-5); LYMPHOCYTES 26.5 % (15-50); MCH 28.4 pg (26.0-34.0); MCHC 33.4 g/dL (31.0-37.0); MCV 84.9 fL (80.0-100.0); MEAN PLATELET VOLUME 9.4 fL (7.4-10.4); MONOCYTES 6.8 % (2-11); NEUTROPHILS 64.6 % (40-80); PLATELET COUNT 251 10x3/uL (130-400); RBC 4.58 10x6/uL (4.00-5.40); RDW 14.1 % (11.5-14.5); WBC 11.1 10x3/uL (4.8-10.8)
[2019-05-05 22:56] LABS: CALC OSMOLALITY 280 mosm/kg (275-300); CALCIUM 8.9 mg/dL (8.5-10.1); CARBON DIOXIDE 26.4 mmol/L (21.0-32.0); CHLORIDE - SERUM 104 mmol/L (98-107); CREATININE - SERUM 0.8 mg/dL (0.6-1.3); GLUCOSE 94 mg/dL (74-106); SODIUM 141 mmol/L (136-145); UREA NITROGEN 12 mg/dL (7-18); eGFR NON AFRICAN AMERICAN 87 mL/min (90-120)
[2019-05-05 23:02] LABS: ALBUMIN 3.3 g/dL (3.4-5.0); ALKALINE PHOSPHATASE 88 U/L (46-116); ALT (SGPT) 30 U/L (10-68); BILIRUBIN - TOTAL 0.16 mg/dL (0.2-1.3); LIPASE 65 U/L (73-393); PROTEIN - SERUM 7.4 g/dL (6.4-8.2)
[2019-05-06 01:51] LABS: UDS - AMPHET NEGATIVE QUAL (NEGATIVE); UDS - BARB NEGATIVE QUAL (NEGATIVE); UDS - BENZO POSITIVE QUAL (NEGATIVE); UDS - COCAINE NEGATIVE QUAL (NEGATIVE); UDS - OPIATE POSITIVE QUAL (NEGATIVE); UDS - PCP NEGATIVE QUAL (NEGATIVE); UDS - THC NEGATIVE QUAL (NEGATIVE)
[2019-05-06 02:21] VITALS: BP 116/75
== END 2019-05-06 02:22 | disposition home or self-care (01) ==
LOC: D.ER 21:48
PROVIDERS: Family Medicine
DX: R10.9 Unspecified abdominal pain (principal)

== ENCOUNTER 2019-09-12 06:24 | Day surgery (SDC) | payer MEDICAID ==
[~2019-09-12] VITALS: Ht 160 cm; Wt 97.1 kg
--- NOTE | ~2019-09-12 | OP ---
PATIENT NAME: CHICO FORD MEDICAL RECORD: [id number] :87 LOCATION:D.OPS ADMISSION DATE: SURGEON: HAYLEE MATTSON MD DATE OF OPERATION: 09/12/2019 PREOPERATIVE DIAGNOSES: Painful right knee with residual painful hardware. POSTOPERATIVE DIAGNOSES: Painful right knee with residual painful hardware, lateral meniscal tear. PROCEDURE: 1. Arthroscopic partial lateral meniscectomy. 2. Removal of painful hardware of the right knee. SURGEON: Haylee Mattson MD FLAT LOCKER: BRENNA Aaron INTRAOPERATIVE COMPLICATIONS: None. SUMMARY OF PATHOLOGIC FINDINGS: The patient had previous hardware from a patellar realignment surgery that continued to be painful; however, consistent with her exam she was also found to have a lateral meniscus tear. OPERATIVE SUMMARY IN DETAIL: After obtaining the appropriate preoperative orthopedic surgery consent as well as anesthetic consultation, evaluation and clearance, the patient was brought to the operating room and placed on the operating table in supine position. After adequate general laryngeal mask airway was administered, tourniquet was placed on the proximal aspect of the patient's right lower extremity. Right lower extremity was then prepped and draped in routine sterile fashion. The leg was elevated and exsanguinated, tourniquet was inflated to 350 mmHg. Appropriate timeout was taken and agreed upon by all given the patient's unique identifiers. Attention was first turned to removal of the hardware. With a substantial degree of trepidation, the patient's hardware, both the screw and washer as well as the aislinn were removed. Having completed this, attention was turned to arthroscopy of the knee. Routine inferolateral portal was established followed by superior medial portal and inferior medial portal. Diagnostic arthroscopy did show the patient to have a complex tear of the lateral aspect of the lateral meniscus. Combination of meniscotomes as well as a meniscal resector were utilized to debride the lateral meniscus back to stable lateral meniscal elements. The patient had no chondromalacia in the three compartments of the knee. Patellofemoral compartment was pristine as well as the medial compartment and lateral compartment. She did have the lateral meniscus as described that was taken down to stable lateral meniscal elements. Having completed this, arthroscopy portals were closed in routine interrupted fashion using 4-0 Prolene. Sterile dressings were applied. The patient was awakened, taken to recovery room in stable condition. All final needle and sponge counts were correct. TRANSINT:[id number] Voice Confirmation ID: [id number] DOCUMENT ID: [id number] OPERATIVE REPORT [id number] CHICO FORD MD, HAYLEE RODGERS CC: [id number] DICTATION DATE: 09/14/1945 UPPER MARKER: 09/14/19 1026 [facility] 09/12/19 [place] [address]
[~2019-09-12 06:24] MED LIST changes: +CIPRO500 MG PO; +TALWIN NX1 TAB PO; +UNK ANTIDEPRESSANT
[2019-09-12 07:01] LABS: HEMATOCRIT 43.2 % (36.0-48.0); HEMOGLOBIN 13.7 g/dL (12-16); MCH 28.2 pg (26.0-34.0); MCHC 31.7 g/dL (31.0-37.0); MCV 89.1 fL (80.0-100.0); MEAN PLATELET VOLUME 9.4 fL (7.4-10.4); RBC 4.85 10x6/uL (4.00-5.40); RDW 14.3 % (11.5-14.5); WBC 9.7 10x3/uL (4.8-10.8)
[2019-09-12 07:18] VITALS: BP 126/78; Ht 160 cm; Wt 97.1 kg
[2019-09-12] MEDS ORDERED: HYDROCODON-ACE1 EA10 PO (10:54)
--- NOTE | 2019-09-12 14:20 | NUR ---
1245-REMOVED IV WITH CATH INTACT,DISPOSED INTO SHARPS,COVERED WITH GUAZE,SECURED WITH MEDIPORE TAPE.
--- NOTE | 2019-09-12 14:21 | NUR ---
1300-ESCORTED OUT VIA W/C WITH FRIEND AWAITING TO DRIVE HOME.
--- NOTE | 2019-09-12 14:21 | NUR ---
1255-REVIEWED POST OPEATIVE INSTRUCTIONS AND FOLLOW UP APPOINTMENT. VERBALIZED UNDERSTANDING.
== END 2019-09-12 13:00 | disposition home or self-care (01) ==
LOC: D.OPS 06:24 → D.PAN 07:30 → D.OPS 13:00
PROVIDERS: Anesthesiology; ATTEND Orthopaedic Surgery
DX: M25.561 Pain in right knee (principal); M23.91 Unspecified internal derangement of right knee; T85.848A Pain due to other internal prosthetic devices, implants and grafts, initial encounter

== ENCOUNTER 2019-11-13 22:13 | Emergency (ER) | payer MEDICAID ==
[~2019-11-13] VITALS: Ht 160 cm; Wt 102.3 kg
[2019-11-13 22:33] VITALS: Ht 160 cm; Wt 102.3 kg
[2019-11-13 23:53] LABS: HEMATOCRIT 37.3 % (36.0-48.0); HEMOGLOBIN 12.4 g/dL (12-16); LYMPHOCYTES 33.8 % (15-50); MCHC 33.2 g/dL (31.0-37.0); MCV 87.4 fL (80.0-100.0); MEAN PLATELET VOLUME 9.2 fL (7.4-10.4); NEUTROPHILS 59.5 % (40-80); PLATELET COUNT 275 10x3/uL (130-400); RBC 4.27 10x6/uL (4.00-5.40); RDW 14.1 % (11.5-14.5); WBC 10.4 10x3/uL (4.8-10.8)
[2019-11-14 00:01] LABS: CALC OSMOLALITY 278 mosm/kg (275-300); CALCIUM 8.6 mg/dL (8.5-10.1); CARBON DIOXIDE 28.2 mmol/L (21.0-32.0); CHLORIDE - SERUM 106 mmol/L (98-107); CREATININE - SERUM 0.9 mg/dL (0.6-1.3); GLUCOSE 87 mg/dL (74-106); POTASSIUM - SERUM 3.9 mmol/L (3.5-5.1); SODIUM 141 mmol/L (136-145); UREA NITROGEN 9 mg/dL (7-18); eGFR NON AFRICAN AMERICAN 76 mL/min (90-120)
[2019-11-14 00:09] LABS: HCG URINE NEGATIVE (NEGATIVE)
[2019-11-14 00:10] LABS: ALBUMIN 3.3 g/dL (3.4-5.0); ALKALINE PHOSPHATASE 91 U/L (30-120); ALT (SGPT) 19 U/L (10-68); AMYLASE - SERUM 41 U/L (25-115); BILIRUBIN - TOTAL 0.12 mg/dL (0.2-1.3); PROTEIN - SERUM 6.8 g/dL (6.4-8.2); TROPONIN-I < 0.017 ng/mL (0.000-0.060)
[2019-11-14 00:13] LABS: LIPASE 43 U/L (73-393)
[2019-11-14 00:25] LABS: BILIRUBIN NEGATIVE (NEGATIVE); GLUCOSE NEGATIVE (NEGATIVE); KETONE NEGATIVE (NEGATIVE); NITRITE NEGATIVE (NEGATIVE); SPECIFIC GRAVITY 1.025 (1.005-1.020); UROBILINOGEN NORMAL (NORMAL)
[2019-11-14 00:26] LABS: BACTERIA FEW /hpf (NEGATIVE); EPITHELIAL CELLS 0-5 /hpf (0-5); RED CELLS - URINE 0-5 /hpf (0-5); WHITE CELLS - URINE 0-5 /hpf (NEGATIVE)
[2019-11-14] MEDS ORDERED: TYLENOL W/CODEI1 TAB PO (01:21)
[2019-11-14 01:34] VITALS: BP 109/56
== END 2019-11-14 01:36 | disposition home or self-care (01) ==
LOC: D.ER 22:13
PROVIDERS: Family Medicine
DX: R10.32 Left lower quadrant pain (principal)

== ENCOUNTER → 2020-01-02 10:46 | Outpatient (CLI) | payer MEDICAID ==
[2019-11-13 22:33] VITALS: BMI 39.9
[~2020-01-02 10:46] MED LIST changes: +TYLENOL W/CODEI1 TAB PO
== END | disposition home or self-care (01) ==
LOC: D.MRI 10:46
PROVIDERS: ATTEND Orthopaedic Surgery
DX: M25.561 Pain in right knee (principal)

== ENCOUNTER 2020-07-23 16:06 | Emergency (ER) | payer MEDICAID ==
[~2020-07-23] VITALS: Ht 160 cm; Wt 100.0 kg
[2020-07-23 16:12] VITALS: Ht 160 cm; Wt 100.0 kg
[2020-07-23] MEDS ORDERED: NORFLEX100 MG PO (19:16)
[2020-07-23 19:26] VITALS: BP 139/89
== END 2020-07-23 19:26 | disposition home or self-care (01) ==
LOC: D.ER 16:06
DX: Z76.5 Malingerer [conscious simulation] (principal); M79.10 Myalgia, unspecified site; M54.2 Cervicalgia; V89.2XXA Person injured in unspecified motor-vehicle accident, traffic, initial encounter; Y93.9 Activity, unspecified; Y92.9 Unspecified place or not applicable

== ENCOUNTER 2020-09-13 15:30 | Emergency (ER) | payer MEDICAID ==
[~2020-09-13] VITALS: Ht 160 cm; Wt 100.0 kg
[~2020-09-13 15:30] MED LIST changes: +NORFLEX100 MG PO
[2020-09-13 15:40] VITALS: BP 141/76; Ht 160 cm; Wt 100.0 kg
[2020-09-13] MEDS ORDERED: CLEOCIN HCL300 MG PO (15:45)
[2020-09-13] MEDS ORDERED: ORAL ANALGESIC9 GM TOPICAL (15:45)
== END 2020-09-13 16:00 | disposition home or self-care (01) ==
LOC: D.ER 15:30
DX: K08.89 Other specified disorders of teeth and supporting structures (principal)